=== PATIENT | female | born 1980 | race Caucasian/White ===

== ENCOUNTER 2016-09-30 10:27 | Emergency (ER) | payer OTHER ==
--- NOTE | 2016-09-30 13:03 | ED NURSING NOTES ---
Clinical Report - Nurses [facility] [address] [place] [address] 09/30/2016 10:29 Patient: RUSSELL SEGOVIA TRIAGE Triage time 10:35. Chief Complaint: INJURY TO LEFT KNEE. Alert. No acute distress. PARTH COMA SCORE: Parth Coma Scale: 15- eyes open spontaneously (4); best verbal response- oriented x 4 (5); best motor response- obeys commands (6). --10:43 Marlena Dennis R.N. 10:35 09/30/16. BP: 160/98 taken while sitting. HR: 92. RR: 20. O2 saturation: 100%. Temp: 98.6 F. Pain level now: 05/01. --10:43 Marlena Dennis R.N. [facility]-- 10:35 09/30/16. BP: 180/98 taken while sitting. HR: 92. RR: 20. O2 saturation: 100%. Temp: 98.6 F. Pain level now: 05/01. --10:43 Marlena Dennis R.N. --END STRIKE>> Correction. --13:39 Marlena eDnnis R.N. Weight: 74.8 kg stated. Height/Length: 63 inches. BMI: 29.2. --10:36 Marlena Dennis R.N. Medications Vitamins. --10:40 Marlena Dennis R.N. Allergies No Known Drug Allergy. --10:39 Marlena Dennis R.N. Medication/allergy information source: the patient. --10:43 Marlena Dennis R.N. History Arrived by private vehicle. Historian: patient. Primary physician (armando). ( drove self). This occurred yesterday. Occurred at home. Mechanism of injury: fell and landed on a hard surface (in the shower). She has had new onset of numbness, tingling, No new tingling and moderate trouble walking. The patient has been limping when trying to walk. Treatment URBAN DESIGN CONSULTANT: Took ibuprofen. PAST MEDICAL HX: Tetanus status: up-to-date. Last normal menstrual period was 3 weeks ago. SOCIAL HX: Never smoker. Occasional alcohol use. No drug use. FALL RISK ASSESSMENT: Fall risk assessment completed. No fall risk identified. NUTRITIONAL RISK ASSESSMENT: The nutritional risk assessment revealed no deficiencies. FUNCTIONAL ASSESSMENT: Functional assessment: no impairments noted. LEARNING NEEDS ASSESSMENT: The learning needs assessment revealed no barriers. SKIN INTEGRITY ASSESSMENT: Skin integrity risk assessment completed. No skin integrity risk identified. --10:43 Marlena Dennis R.N. PROBLEMS: Ovarian Cyst. --10:41 Marlena Dennis R.N. ADDITIONAL SURGERIES: Adenoidectomy. Appendectomy. Dental Surgery. Hernia Repair. Knee Surgery. Oophorectomy. Sinus Surgery. Tonsillectomy. --10:41 Marlena Dennis R.N. Breast reduction . --10:41 Marlena Dennis R.N. Interventions ID band on patient. To room. --10:43 Marlena Dennis R.N. PHYSICAL ASSESSMENT Ambulatory to room. Patient gowned. GENERAL / NEURO / PSYCH: Appears in pain and anxious. EXTREMITIES: Limited ROM present. Pain with weight bearing. Left knee: tenderness and swelling. SKIN: Skin intact. Skin is warm and dry. --10:43 Marlena Dennis R.N. NURSING PROGRESS NOTES Cold pack applied. Extremity elevated. Patient gowned. Two patient identifiers checked. Call light placed in reach. Side rails up x 1. Bed placed in lowest position. Brakes of bed on. Patient ready for evaluation. --10:43 Marlena Dennis R.N. DISPOSITION / DISCHARGE 13:30. Condition at departure: improved. No learning barriers present. Discharge instructions provided and reviewed with the patient. Reviewed medication(s) side effects, precautions, dosing and course information. Prescription(s) given to the patient. Reviewed referral to an orthopedic surgeon. Patient verbalized understanding. Written instructions provided in Israeli. The patient was discharged home. She left the Emergency Department ambulatory on crutches and via private vehicle. Patient driving. Medication list reviewed and validated. --13:40 Marlena Dennis R.N. 13:39 09/30/16. BP: 129/78. HR: 70. RR: 18. O2 saturation: 99% on room air. Temp: deferred. 12:18 09/30/16. BP: 118/74. HR: 78. RR: 20. O2 saturation: 97% on room air. Temp: deferred. 10:35 09/30/16. BP: 160/98 taken while sitting. HR: 92. RR: 20. O2 saturation: 100%. Temp: 98.6 F. Pain level now: 05/01. --13:40 Marlena Dennis R.N. Locked/Released at 09/30/2016 13:41 by Marlena Dennis R.N.
--- NOTE | 2016-09-30 13:03 | ED CLINICAL REPORT ---
Clinical Report - Physicians/Mid Levels [facility] [address] [place] [address] 09/30/2016 10:29 Patient: RUSSELL SEGOVIA Time Seen: 11:28 Sep 30 2016. Arrived- By private vehicle. Historian- patient. CPT: ER phys charges level 3 plus (#[id number]). HISTORY OF PRESENT ILLNESS Chief Complaint: Injury to left knee. The injury happened yesterday. Fell. Occurred at home. ( This occurred yesterday. Occurred at home. Mechanism of injury: fell and landed on a hard surface (in the shower). She has had new onset of numbness, tingling, No new tingling and moderate trouble walking. The patient has been limping when trying to walk.). Patient is experiencing moderate pain. No other injury. REVIEW OF SYSTEMS The patient complains of pain on weight bearing. She has had swelling. No tingling, weakness, numbness, suspected foreign body or skin laceration. All systems otherwise negative, except as recorded above. PAST HISTORY ( Adenoidectomy. Appendectomy. Dental Surgery. Hernia Repair. Knee Surgery. Oophorectomy. Sinus Surgery. Tonsillectomy. Breast reduction . Ovarian Cyst.). Medications: Vitamins. Allergies: No Known Drug Allergy. SOCIAL HISTORY Never smoker. Occasional alcohol use. No drug use. ADDITIONAL NOTES The nursing notes have been reviewed. PHYSICAL EXAM Vital Signs: 09/30/2016 10:35 BP: 160/98. HR: 92. RR: 20. O2 saturation: 100%. Temp: 98.6 F. Pain level now: 1010. Appearance: Alert. Appears to be in pain. Patient in mild distress. Head: Head atraumatic. Neck: Normal inspection. C-spine non-tender. CVS: Normal heart rate and rhythm. Respiratory: No respiratory distress. Back: No tenderness. Skin: Skin intact. Normal skin color. Extremities: Left knee: moderate tenderness and mild swelling located in the medial joint line. Neurovascular intact distally. (tender to stress of the medial collateral.). No ligamentous laxity present. No joint effusion. No laceration, abrasion, ecchymosis or deformity. No limitation in ROM. Extremities otherwise negative. Gait: Limping gait. Neuro, Vascular and Tendons: Vascular status intact. Sensation intact. Motor intact. Neuro: Oriented X 3. No motor deficit. No sensory deficit. Reflexes normal. LABS, X-RAYS, AND EKG Lt Knee X-ray: (No fx, small effusion.). Views: AP, lateral and oblique. Technique: good. The X-rays were independently viewed by me and interpreted contemporaneously by me. Prior films were not available for comparison. PROGRESS AND PROCEDURES Splint Application: Knee immobilizer applied to left lower extremity. Splint applied by tech with direct supervision by the ED physician. Reassessed extremity following splint application. Neurovascular intact. Follow-up recommended within 7 days. Fitted for crutches by the tech. Patient/family counseled. Disposition: Discharged. Condition: stable. CLINICAL IMPRESSION Sprain of the medial collateral ligament of the left knee. INSTRUCTIONS Apply ice for 15-20 minutes three times a day for one days. Use crutches until better. Wear knee immobilizer until better. You may walk and bear weight as tolerated. Return to work in three days (use crutches and knee immobilzer until better.). Do not work for two days until better. Warnings: GENERAL WARNINGS: Return or contact your physician immediately if your condition worsens or changes unexpectedly, if not improving as expected, or if other problems arise. Your Current Medications: CONTINUE TAKING THE FOLLOWING MEDICATIONS: Vitamins*. Prescription Medications: Hydrocodone/APAP 5mg/325mg: take 1 to 2 orally every 6 hours as needed for pain. Dispense fifteen (15). No refills. Ibuprofen 600mg tablets: take 1 tablet orally every 8 hours as needed for pain. Dispense thirty (30). No refills. Follow-up: Follow up with your doctor in one week. Call for an appointment. Understanding of the discharge instructions verbalized by patient. (Electronically signed by Jaswinder Jacobsen MD 10/02/2016 11:34) Addenda for RUSSELL SEGOVIA VisitID: [id number] Date: 09/30/2016 09/30/2016 14:02 Immobolizer applied to the left knee by the diazo technician. Distal pulses intatct, sensation intact and motor function within normal limits. Patient fit with new crutches. Crutch training performed by tech; the patient demonstrated proper use. (Electronically signed by Jayleen Montoya - 09/30/2016 14:02)
--- NOTE | 2016-09-30 13:03 | ED ORDER SUMMARY ---
..... Patient: RUSSELL SEGOVIA OrderSheet [facility] VisitID: [id number] [place] [address] 35y, F Registration Date/Time: 09/30/2016 ORDER SHEET Weight: 74.8 kg (stated) Allergies: No Known Drug Allergy GENERAL ORDERS: Knee 4V Left Urgent (11:27 09/30/2016 Jennifer GARBER) (Ack 11:46 LTapper) (12:07 LTapper) Knee Immobilizer (13:09/30/2016 Jennifer GARBER) (13:34 Regine R.N.) Crutches (13:09/30/2016 Jennifer GARBER) (13:35 Regine R.N.) MEDICATION ORDERS: IV FLUIDS: ORDER SHEET NOTES: [Electronically signed by Marlena Dennis R.N. (13:41 09/30/2016)] [Electronically signed by Jaswinder Jacobsen MD (11:34 10/02/2016)] [Electronically locked/signed by Marlena Dennis R.N. (13:41 09/30/2016)]
--- NOTE | 2016-09-30 13:03 | ED ORDER SUMMARY ---
..... Patient: RUSSELL SEGOVIA OrderSheet [facility] VisitID: [id number] [place] [address] 35y, F Registration Date/Time: 09/30/2016 ORDER SHEET Weight: 74.8 kg (stated) Allergies: No Known Drug Allergy GENERAL ORDERS: Knee 4V Left Urgent (11:27 09/30/2016 Jennifer GARBER) (Ack 11:46 LTapper) (12:07 LTapper) Knee Immobilizer (13:09/30/2016 Jennifer GARBER) (13:34 Regine R.N.) Crutches (13:09/30/2016 Jennifer GARBER) (13:35 Regine R.N.) MEDICATION ORDERS: IV FLUIDS: ORDER SHEET NOTES: [Electronically signed by Marlena Dennis R.N. (13:41 09/30/2016)] [Electronically signed by Jaswinder Jacobsen MD (11:34 10/02/2016)] [Electronically locked/signed by Marlena Dennis R.N. (13:41 09/30/2016)]
--- NOTE | 2016-09-30 13:03 | ED CLINICAL REPORT ---
Clinical Report - Physicians/Mid Levels [facility] [address] [place] [address] 09/30/2016 10:29 Patient: RUSSELL SEGOVIA Time Seen: 11:28 Sep 30 2016. Arrived- By private vehicle. Historian- patient. CPT: ER phys charges level 3 plus (#[id number]). HISTORY OF PRESENT ILLNESS Chief Complaint: Injury to left knee. The injury happened yesterday. Fell. Occurred at home. ( This occurred yesterday. Occurred at home. Mechanism of injury: fell and landed on a hard surface (in the shower). She has had new onset of numbness, tingling, No new tingling and moderate trouble walking. The patient has been limping when trying to walk.). Patient is experiencing moderate pain. No other injury. REVIEW OF SYSTEMS The patient complains of pain on weight bearing. She has had swelling. No tingling, weakness, numbness, suspected foreign body or skin laceration. All systems otherwise negative, except as recorded above. PAST HISTORY ( Adenoidectomy. Appendectomy. Dental Surgery. Hernia Repair. Knee Surgery. Oophorectomy. Sinus Surgery. Tonsillectomy. Breast reduction . Ovarian Cyst.). Medications: Vitamins. Allergies: No Known Drug Allergy. SOCIAL HISTORY Never smoker. Occasional alcohol use. No drug use. ADDITIONAL NOTES The nursing notes have been reviewed. PHYSICAL EXAM Vital Signs: 09/30/2016 10:35 BP: 160/98. HR: 92. RR: 20. O2 saturation: 100%. Temp: 98.6 F. Pain level now: 1010. Appearance: Alert. Appears to be in pain. Patient in mild distress. Head: Head atraumatic. Neck: Normal inspection. C-spine non-tender. CVS: Normal heart rate and rhythm. Respiratory: No respiratory distress. Back: No tenderness. Skin: Skin intact. Normal skin color. Extremities: Left knee: moderate tenderness and mild swelling located in the medial joint line. Neurovascular intact distally. (tender to stress of the medial collateral.). No ligamentous laxity present. No joint effusion. No laceration, abrasion, ecchymosis or deformity. No limitation in ROM. Extremities otherwise negative. Gait: Limping gait. Neuro, Vascular and Tendons: Vascular status intact. Sensation intact. Motor intact. Neuro: Oriented X 3. No motor deficit. No sensory deficit. Reflexes normal. LABS, X-RAYS, AND EKG Lt Knee X-ray: (No fx, small effusion.). Views: AP, lateral and oblique. Technique: good. The X-rays were independently viewed by me and interpreted contemporaneously by me. Prior films were not available for comparison. PROGRESS AND PROCEDURES Splint Application: Knee immobilizer applied to left lower extremity. Splint applied by tech with direct supervision by the ED physician. Reassessed extremity following splint application. Neurovascular intact. Follow-up recommended within 7 days. Fitted for crutches by the tech. Patient/family counseled. Disposition: Discharged. Condition: stable. CLINICAL IMPRESSION Sprain of the medial collateral ligament of the left knee. INSTRUCTIONS Apply ice for 15-20 minutes three times a day for one days. Use crutches until better. Wear knee immobilizer until better. You may walk and bear weight as tolerated. Return to work in three days (use crutches and knee immobilzer until better.). Do not work for two days until better. Warnings: GENERAL WARNINGS: Return or contact your physician immediately if your condition worsens or changes unexpectedly, if not improving as expected, or if other problems arise. Your Current Medications: CONTINUE TAKING THE FOLLOWING MEDICATIONS: Vitamins*. Prescription Medications: Hydrocodone/APAP 5mg/325mg: take 1 to 2 orally every 6 hours as needed for pain. Dispense fifteen (15). No refills. Ibuprofen 600mg tablets: take 1 tablet orally every 8 hours as needed for pain. Dispense thirty (30). No refills. Follow-up: Follow up with your doctor in one week. Call for an appointment. Understanding of the discharge instructions verbalized by patient. (Electronically signed by Jaswinder Jacobsen MD 10/02/2016 11:34) Addenda for RUSSELL SEGOVIA VisitID: [id number] Date: 09/30/2016 09/30/2016 14:02 Immobolizer applied to the left knee by the serology technician. Distal pulses intatct, sensation intact and motor function within normal limits. Patient fit with new crutches. Crutch training performed by tech; the patient demonstrated proper use. (Electronically signed by Jayleen Montoya - 09/30/2016 14:02)
--- NOTE | 2016-09-30 13:03 | ED NURSING NOTES ---
Clinical Report - Nurses [facility] [address] [place] [address] 09/30/2016 10:29 Patient: RUSSELL SEGOVIA TRIAGE Triage time 10:35. Chief Complaint: INJURY TO LEFT KNEE. Alert. No acute distress. PARTH COMA SCORE: Parth Coma Scale: 15- eyes open spontaneously (4); best verbal response- oriented x 4 (5); best motor response- obeys commands (6). --10:43 Marlena Dennis R.N. 10:35 09/30/16. BP: 160/98 taken while sitting. HR: 92. RR: 20. O2 saturation: 100%. Temp: 98.6 F. Pain level now: 05/01. --10:43 Marlena Dennis R.N. [facility]-- 10:35 09/30/16. BP: 180/98 taken while sitting. HR: 92. RR: 20. O2 saturation: 100%. Temp: 98.6 F. Pain level now: 05/01. --10:43 Marlena Dennis R.N. --END STRIKE>> Correction. --13:39 Marlena Dennis R.N. Weight: 74.8 kg stated. Height/Length: 63 inches. BMI: 29.2. --10:36 Marlena Dennis R.N. Medications Vitamins. --10:40 aMrlena Dennis R.N. Allergies No Known Drug Allergy. --10:39 Marlena Dennis R.N. Medication/allergy information source: the patient. --10:43 Marlena Dennis R.N. History Arrived by private vehicle. Historian: patient. Primary physician (armando). ( drove self). This occurred yesterday. Occurred at home. Mechanism of injury: fell and landed on a hard surface (in the shower). She has had new onset of numbness, tingling, No new tingling and moderate trouble walking. The patient has been limping when trying to walk. Treatment PONY ROUGHER: Took ibuprofen. PAST MEDICAL HX: Tetanus status: up-to-date. Last normal menstrual period was 3 weeks ago. SOCIAL HX: Never smoker. Occasional alcohol use. No drug use. FALL RISK ASSESSMENT: Fall risk assessment completed. No fall risk identified. NUTRITIONAL RISK ASSESSMENT: The nutritional risk assessment revealed no deficiencies. FUNCTIONAL ASSESSMENT: Functional assessment: no impairments noted. LEARNING NEEDS ASSESSMENT: The learning needs assessment revealed no barriers. SKIN INTEGRITY ASSESSMENT: Skin integrity risk assessment completed. No skin integrity risk identified. --10:43 Marlena Dennis R.N. PROBLEMS: Ovarian Cyst. --10:41 Marlena Dennis R.N. ADDITIONAL SURGERIES: Adenoidectomy. Appendectomy. Dental Surgery. Hernia Repair. Knee Surgery. Oophorectomy. Sinus Surgery. Tonsillectomy. --10:41 Marlena Dennis R.N. Breast reduction . --10:41 Marlena Dennis R.N. Interventions ID band on patient. To room. --10:43 Marlena Dennis R.N. PHYSICAL ASSESSMENT Ambulatory to room. Patient gowned. GENERAL / NEURO / PSYCH: Appears in pain and anxious. EXTREMITIES: Limited ROM present. Pain with weight bearing. Left knee: tenderness and swelling. SKIN: Skin intact. Skin is warm and dry. --10:43 Marlena Dennis R.N. NURSING PROGRESS NOTES Cold pack applied. Extremity elevated. Patient gowned. Two patient identifiers checked. Call light placed in reach. Side rails up x 1. Bed placed in lowest position. Brakes of bed on. Patient ready for evaluation. --10:43 Marlena eDnnis R.N. DISPOSITION / DISCHARGE 13:30. Condition at departure: improved. No learning barriers present. Discharge instructions provided and reviewed with the patient. Reviewed medication(s) side effects, precautions, dosing and course information. Prescription(s) given to the patient. Reviewed referral to an orthopedic surgeon. Patient verbalized understanding. Written instructions provided in Hungarian. The patient was discharged home. She left the Emergency Department ambulatory on crutches and via private vehicle. Patient driving. Medication list reviewed and validated. --13:40 Marlena Dennis R.N. 13:39 09/30/16. BP: 129/78. HR: 70. RR: 18. O2 saturation: 99% on room air. Temp: deferred. 12:18 09/30/16. BP: 118/74. HR: 78. RR: 20. O2 saturation: 97% on room air. Temp: deferred. 10:35 09/30/16. BP: 160/98 taken while sitting. HR: 92. RR: 20. O2 saturation: 100%. Temp: 98.6 F. Pain level now: 05/01. --13:40 Marlena Dennis R.N. Locked/Released at 09/30/2016 13:41 by Marlena Dennis R.N.
--- NOTE | 2016-09-30 13:44 | DIAGNOSTIC IMAGING REPORT ---
PROCEDURE: XR KNEE 4 VIEWS - LEFT INDICATION: TRAUMA/INJURY TECHNIQUE: Four views. COMPARISON: None. FINDINGS: Normal bones and joint spaces. Small effusion. IMPRESSION: 1. Small effusion.
--- NOTE | 2016-09-30 13:44 | DIAGNOSTIC IMAGING REPORT ---
PROCEDURE: XR KNEE 4 VIEWS - LEFT INDICATION: TRAUMA/INJURY TECHNIQUE: Four views. COMPARISON: None. FINDINGS: Normal bones and joint spaces. Small effusion. IMPRESSION: 1. Small effusion.
--- NOTE | 2016-10-02 11:34 | ED MED RECONCILIATION SUMMARY ---
Patient: RUSSELL SEGOVIA Medication Reconciliation Report [facility] VisitID: [id number] [place] [address] 35y, [place] Registration Date/Time: 09/30/2016 Weight: 74.8 kg Height/Length: 63 in. BMI: 29.2 ALLERGIES: No Known Drug Allergy The patient's Home Medications are listed below: CONTINUE TAKING THE FOLLOWING MEDICATIONS: Vitamins The source(s) of the original Home Medication information: patient The following Medications were given to the patient in the Emergency Department: None. The following Medications were prescribed to the patient: Hydrocodone/APAP 5mg/325mg: take 1 to 2 orally every 6 hours as needed for pain. Dispense fifteen (15). No refills. -- Jaswinder Jacobsen MD Ibuprofen 600mg tablets: take 1 tablet orally every 8 hours as needed for pain. Dispense thirty (30). No refills. -- Jaswinder Jacobsen MD
--- NOTE | 2016-10-02 11:34 | ED MAR SUMMARY ---
..... Medication Administration Record [facility] [address] [place], [place] [id number] Patient: RUSSELL SEGOVIA Visit ID: [id number] 35y, F Weight: 74.8 kg Height/Length: 63 in BMI: 29.2 ALLERGIES: No Known Drug Allergy
--- NOTE | 2016-10-02 11:34 | ED MAR SUMMARY ---
..... Medication Administration Record [facility] [address] [place], [place] [id number] Patient: RUSSELL SEGOVIA Visit ID: [id number] 35y, F Weight: 74.8 kg Height/Length: 63 in BMI: 29.2 ALLERGIES: No Known Drug Allergy
--- NOTE | 2016-10-02 11:34 | ED MED RECONCILIATION SUMMARY ---
Patient: RUSSELL SEGOVIA Medication Reconciliation Report VisitID: [id number] [place] [address] 35y, F Registration Date/Time: 09/30/2016 Weight: 74.8 kg Height/Length: 63 in. BMI: 29.2 ALLERGIES: No Known Drug Allergy The patient's Home Medications are listed below: CONTINUE TAKING THE FOLLOWING MEDICATIONS: Vitamins The source(s) of the original Home Medication information: patient The following Medications were given to the patient in the Emergency Department: None. The following Medications were prescribed to the patient: Hydrocodone/APAP 5mg/325mg: take 1 to 2 orally every 6 hours as needed for pain. Dispense fifteen (15). No refills. -- Jaswinder Jacobsen MD Ibuprofen 600mg tablets: take 1 tablet orally every 8 hours as needed for pain. Dispense thirty (30). No refills. -- Jaswinder Jacobsen MD
--- NOTE | 2016-10-02 11:34 | ED DISCHARGE INSTRUCTIONS ---
Patient: RUSSELL SEGOVIA General Instructions [facility] VisitID: [id number] [place] [address] 35y, F Registration Date/Time: 09/30/2016 Sprain of the medial collateral ligament of the left knee. INSTRUCTIONS Apply ice for 15-20 minutes three times a day for one days. Use crutches until better. Wear knee immobilizer until better. You may walk and bear weight as tolerated. Return to work in three days (use crutches and knee immobilzer until better.). Do not work for two days until better. Warnings: GENERAL WARNINGS: Return or contact your physician immediately if your condition worsens or changes unexpectedly, if not improving as expected, or if other problems arise. Your Current Medications: CONTINUE TAKING THE FOLLOWING MEDICATIONS: Vitamins*. Prescription Medications: Hydrocodone/APAP 5mg/325mg: take 1 to 2 orally every 6 hours as needed for pain. Dispense fifteen (15). No refills. Ibuprofen 600mg tablets: take 1 tablet orally every 8 hours as needed for pain. Dispense thirty (30). No refills. Follow-up: Follow up with your doctor in one week. Call for an appointment. Understanding of the discharge instructions verbalized by patient. ADDITIONAL INFORMATION Knee Sprain, Collateral Ligaments The knee is a hinge joint supported by four strong ligaments. The two ligaments inside the knee (cruciate ligaments) protect this joint from excess forward and backward movement. The ligaments on the outside of the joint (collateral ligaments) prevent [id number] motion. The medial collateral ligament (MCL) is located on the inner side of the joint; and the lateral collateral ligament (LCL) is on the outer side of the joint. You have sprained one or both collateral ligaments. A sprain is a tearing of a ligament. The tear may be partial or complete. Diagnosis is made by physical exam. In the case of an acute injury, the knee may be too swollen or painful to examine fully. A more accurate exam can be performed after the initial swelling goes down. Symptoms of a knee sprain include immediate knee swelling, pain, and difficulty walking.Initial treatment includes resting the joint, splinting to reduce movement of the joint, use of ice to reduce swelling and pain. Non-steroidal anti-inflammatory drugs (NSAIDs), such as ibuprofen, may be prescribed. Most sprains will heal in one to four weeks.A severe injury can take three to four months to heal and requires rehabilitation exercises. Surgery is usually not required for sprains involving only the collateral ligaments. Home care The following guidelines will help you care for your injury at home: Stay off the injured leg as much as possible until you can walk on it without pain. If you have a lot of pain while walking, crutches, or a walker may be prescribed. (These can be rented or purchased at many pharmacies and surgical or orthopedic supply stores.) Follow your doctor's advice regarding when to begin bearing weight on that leg. If you were given a txub-crf-uzou closure knee brace, you can remove this to bathe, but leave it in place when walking, sitting, or lying down (unless told otherwise). Apply an ice pack (ice cubes in a plastic bag, wrapped in a towel) over the injured area for 20 minutes every 12 hours the first day. If a gwtl-bri-wvdo closure knee brace was applied, you can open this to apply the ice pack directly to the knee. Continue with ice packs 34 times a day for the next two days, then as needed for the relief of pain and swelling. You may use acetaminophen or ibuprofen to control pain, unless another pain medicine was prescribed. If you have chronic liver or kidney disease or ever had a stomach ulcer or GI bleeding, talk with your doctor before using these medicines. Follow-up care Follow up with the referral doctor, or as advised by our staff. Any X-rays you had today dont show any broken bones, breaks, or fractures. Sometimes fractures dont show up on the first X-ray. Bruises and sprains can sometimes hurt as much as a fracture. These injuries can take time to heal completely. If your symptoms dont improve or they get worse, talk with your doctor. You may need a repeat X-ray. When to seek medical care Get prompt medical attention if any of the following occur: Pain or swelling worsens Shortness of breath or chest pain Swelling or redness or pain of the calf or thigh Crutch Walking Crutch Adjustment Make sure the crutches you use are adjusted to fit you. When you stand, there should be room to fit 2-3 fingers between the top of the crutch and your armpit. Your elbow should be slightly bent when holding the hand housing management officer. Crutch Walking: Place the crutches forward 12" in front of and 6" to the side of your feet. Lean your weight forward as you push down on the handgrips. Your weight should be on your hands and yourstrong leg, not your armpits . Let your body swing through, landing on the strong leg. Advance the crutches forward again. The crutch and the injured leg should move together. Going Up Steps: ("Up with the good") With both crutches on the same step as your feet, push down on the handgrips. Balancing with very light pressure on the weak leg, let your hands support your weight as you raise your strong leg onto the next higher step. Transfer all your weight to your strong leg (still bent) as you move the crutches up to the next step alongside the strong leg. With your weight evenly balanced on the two crutches and your strong leg, straighten your strong knee as you raise the weak leg up to the next step. Going Down Steps: ("Down with the bad") With both crutches on the same step as your feet, push down on the handgrips. With your weight evenly balanced on the two crutches and your strong leg, bend your strong knee as you lower the weak leg down to the next step. Let your strong leg support you (still bent) as you move the crutches down alongside the weak leg. Transfer your weight to your hands, balancing with very light pressure on the weak leg as you lower your strong leg alongside your weak leg. Knee Immobilizer A KNEE IMMOBILIZER is used to provide support and limit movement of the knee. This will make you more comfortable as your injury heals. Home Use: 1) Unless told otherwise, the knee brace should be worn whenever you are out of bed. You may wear it in bed while asleep for the first few nights or until the pain starts to go away. Otherwise, remove the brace at night to avoid muscle stiffness from lack of joint movement. 2) You can open the velcro brace to dress, bathe and apply ice packs as directed. Get Prompt Medical Attention if any of the following occur: -- Worsening pain in the knee -- Weakness or numbness or tingling in the foot -- Increased swelling, redness or warmth of the knee joint You have been given the following additional information: Knee Sprain: Collateral Ligaments Crutch Walking Knee Immobilizer You may walk and bear weight as tolerated. Return to work in three days (use crutches and knee immobilzer until better.). Do not work for two days until better. (Electronically signed by Jaswinder Jacobsen MD 10/02/2016 11:34)
== END 2016-09-30 13:30 | disposition home or self-care (01) ==
LOC: ED SRH 10:27
DX: S83.412A Sprain of medial collateral ligament of left knee, initial encounter (principal); W18.2XXA Fall in (into) shower or empty bathtub, initial encounter; Y93.E1 Activity, personal bathing and showering; Y92.002 Bathroom of unspecified non-institutional (private) residence as the place of occurrence of the external cause

== ENCOUNTER 2016-10-02 12:42 | Emergency (ER) | payer OTHER ==
--- NOTE | 2016-10-02 13:40 | ED NURSING NOTES ---
Clinical Report - Nurses [address], [place] [address] 10/02/2016 12:42 Patient: RUSSELL SEGOVIA TRIAGE Triage time 13:01. Acuity: LEVEL 4. Chief Complaint: INJURY TO LEFT KNEE. Alert. No acute distress. DAR COMA SCORE: [place] Coma Scale: 15- eyes open spontaneously (4); best verbal response- oriented x 4 (5); best motor response- obeys commands (6). --13:09 Ani Conway R.N. 13:00 10/02/16. BP: 159/92. HR: 87. RR: 18. O2 saturation: 100% on room air. Temp: 97.6 F (oral). Pain level now: 05/01. --13:09 Ani Conway R.N. Weight: 74.8 kg stated. Height/Length: 62 inches Per Patient. BMI: 30.2. --13:05 Ani Conway R.N. Medications Vitamins. --13:03 Ani Conway R.N. Ibuprofen Oral. Vicodin Oral (taking 2 and not helping). --13:03 Ani Conway R.N. Medication/allergy information source: the patient. --13:09 Ani Conway R.N. Allergies No Known Drug Allergy. --13:03 Ani Conway R.N. History Arrived by private vehicle. Historian: patient. Accompanied by family. Primary physician ([facility]). This occurred (5 days). Mechanism of injury: fell (slipped in shower ). ( seen here Sunday, has apt Sunday, pain bad, can't sleep). 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 (Vicodin @1200). PAST MEDICAL HX: Last normal menstrual period- Aug 2016. SOCIAL HX: Smoker- current status unknown (no). Occasional alcohol use. No drug use. FALL RISK ASSESSMENT: Fall risk assessment completed. No fall risk identified. FUNCTIONAL ASSESSMENT: Functional assessment: no impairments noted. LEARNING NEEDS ASSESSMENT: The learning needs assessment revealed no barriers. --13:09 Ani Conway R.N. PROBLEMS: Sprain. Ovarian Cyst. LNMP - Last Normal Menstrual Period. --13:04 Ani Conway R.N. ADDITIONAL SURGERIES: Adenoidectomy. Appendectomy. Breast reduction . Dental Surgery. Hernia Repair. Knee Surgery. Oophorectomy. Sinus Surgery. Tonsillectomy. --13:04 Ani Conway R.N. Assessment GENERAL / NEURO / PSYCH: Alert. Oriented X 4. Appears in no acute distress. Patient appears calm and cooperative. RESPIRATORY: Respirations not labored. SKIN: Skin is warm and dry. --13:09 Ani Conway R.N. Interventions ID band on patient. To treatment room. --13:09 Ani Conway R.N. PHYSICAL ASSESSMENT 13:12 10/02/16. Ambulatory to room. GENERAL / NEURO / PSYCH: Oriented X 4. Alert. Appears in no acute distress. EXTREMITIES: Pain with weight bearing. ( wearing knee imobolizer from previous visit). SKIN: Skin is warm and dry. --13:12 Ani Conway R.N. NURSING PROGRESS NOTES 13:12 10/02/16. Call light placed in reach. Side rails up x 1. Bed placed in lowest position. Brakes of bed on. --13:12 Ani Conway R.N. 13:13 states she took her last vicodin. --13:13 Ani Conway R.N. 13:52 10/02/2016 Toradol (Ketorolac Tromethamine) IM 60 mg given. Given in the right ventral gluteus. Allergies verified and confirmed 5 rights. --13:52 Ani Conway R.N. 13:55. The patient is calm and resting quietly. Overall patient status is the same- she states feels the same. GENERAL / NEURO / PSYCH: Alert. Oriented X 4. RESPIRATORY: No respiratory distress. SKIN: Skin is warm and dry. --14:59 Ani Conway R.N. DISPOSITION / DISCHARGE Departure time: 1355. Condition at departure: stable. Fall risk assessment completed. Risk factors identified include patient history of fall and impairment of mobility. No learning barriers present. Discharge instructions provided and reviewed with the patient. Reviewed medication(s). Prescription(s) given to the patient. Patient verbalized understanding. Written instructions provided in Occitan. The patient was discharged home and accompanied by spouse. She left the Emergency Department ambulatory and via private vehicle. --14:58 Ani Conway R.N. 13:55 10/02/16. BP: 155/89. HR: 88. RR: 18. O2 saturation: 100%. Pain level now: 01/29. --14:58 Ani Conway R.N. Locked/Released at 10/02/2016 14:59 by Ani Conway R.N.
--- NOTE | 2016-10-02 13:40 | ED ORDER SUMMARY ---
..... Patient: RUSSELL SEGOVIA OrderSheet [facility] VisitID: [id number] [address] [place] [address] 35y, F Registration Date/Time: 10/02/2016 ORDER SHEET Weight: 74.8 kg (stated) Allergies: No Known Drug Allergy GENERAL ORDERS: MEDICATION ORDERS: Toradol IM 60 mg (NOW) (13:37 10/02/2016 Tyshawn A.R.N.P.) (Ack 13:41 Jose Guadalupe R.N.) (13:52 Jose Guadalupe R.N.) IV FLUIDS: ORDER SHEET NOTES: [Electronically signed by Luciana HuR.N.PMartha (14:22 10/02/2016)] [Electronically signed by Ani Conway R.N. (14:59 10/02/2016)] [Electronically locked/signed by Ani Conway R.N. (14:59 10/02/2016)]
--- NOTE | 2016-10-02 13:40 | ED ORDER SUMMARY ---
..... Patient: RUSSELL SEGOVIA OrderSheet [facility] VisitID: [id number] [address] [place] [address] 35y, F Registration Date/Time: 10/02/2016 ORDER SHEET Weight: 74.8 kg (stated) Allergies: No Known Drug Allergy GENERAL ORDERS: MEDICATION ORDERS: Toradol IM 60 mg (NOW) (13:37 10/02/2016 Tyshawn A.R.N.P.) (Ack 13:41 Jose Guadalupe R.N.) (13:52 Jose Guadalupe R.N.) IV FLUIDS: ORDER SHEET NOTES: [Electronically signed by Luciana HuR.N.PMartha (14:22 10/02/2016)] [Electronically signed by Ani Conway R.N. (14:59 10/02/2016)] [Electronically locked/signed by Ani Conway R.N. (14:59 10/02/2016)]
--- NOTE | 2016-10-02 13:40 | ED NURSING NOTES ---
Clinical Report - Nurses [address], [place] [address] 10/02/2016 12:42 Patient: RUSSELL SEGOVIA TRIAGE Triage time 13:01. Acuity: LEVEL 4. Chief Complaint: INJURY TO LEFT KNEE. Alert. No acute distress. DAR COMA SCORE: [place] Coma Scale: 15- eyes open spontaneously (4); best verbal response- oriented x 4 (5); best motor response- obeys commands (6). --13:09 Ani Conway R.N. 13:00 10/02/16. BP: 159/92. HR: 87. RR: 18. O2 saturation: 100% on room air. Temp: 97.6 F (oral). Pain level now: 05/01. --13:09 Ani Conway R.N. Weight: 74.8 kg stated. Height/Length: 62 inches Per Patient. BMI: 30.2. --13:05 Ani Conway R.N. Medications Vitamins. --13:03 Ani Conway R.N. Ibuprofen Oral. Vicodin Oral (taking 2 and not helping). --13:03 Ani Conway R.N. Medication/allergy information source: the patient. --13:09 Ani Conway R.N. Allergies No Known Drug Allergy. --13:03 Ani Conway R.N. History Arrived by private vehicle. Historian: patient. Accompanied by family. Primary physician ([facility]). This occurred (5 days). Mechanism of injury: fell (slipped in shower ). ( seen here Sunday, has apt Sunday, pain bad, can't sleep). 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 (Vicodin @1200). PAST MEDICAL HX: Last normal menstrual period- Aug 2016. SOCIAL HX: Smoker- current status unknown (no). Occasional alcohol use. No drug use. FALL RISK ASSESSMENT: Fall risk assessment completed. No fall risk identified. FUNCTIONAL ASSESSMENT: Functional assessment: no impairments noted. LEARNING NEEDS ASSESSMENT: The learning needs assessment revealed no barriers. --13:09 Ani Conway R.N. PROBLEMS: Sprain. Ovarian Cyst. LNMP - Last Normal Menstrual Period. --13:04 Ani Conway R.N. ADDITIONAL SURGERIES: Adenoidectomy. Appendectomy. Breast reduction . Dental Surgery. Hernia Repair. Knee Surgery. Oophorectomy. Sinus Surgery. Tonsillectomy. --13:04 Ani Conway R.N. Assessment GENERAL / NEURO / PSYCH: Alert. Oriented X 4. Appears in no acute distress. Patient appears calm and cooperative. RESPIRATORY: Respirations not labored. SKIN: Skin is warm and dry. --13:09 Ani Conway R.N. Interventions ID band on patient. To treatment room. --13:09 Ani Conway R.N. PHYSICAL ASSESSMENT 13:12 10/02/16. Ambulatory to room. GENERAL / NEURO / PSYCH: Oriented X 4. Alert. Appears in no acute distress. EXTREMITIES: Pain with weight bearing. ( wearing knee imobolizer from previous visit). SKIN: Skin is warm and dry. --13:12 Ani Conway R.N. NURSING PROGRESS NOTES 13:12 10/02/16. Call light placed in reach. Side rails up x 1. Bed placed in lowest position. Brakes of bed on. --13:12 Ani Conway R.N. 13:13 states she took her last vicodin. --13:13 Ani Conway R.N. 13:52 10/02/2016 Toradol (Ketorolac Tromethamine) IM 60 mg given. Given in the right ventral gluteus. Allergies verified and confirmed 5 rights. --13:52 Ani Conway R.N. 13:55. The patient is calm and resting quietly. Overall patient status is the same- she states feels the same. GENERAL / NEURO / PSYCH: Alert. Oriented X 4. RESPIRATORY: No respiratory distress. SKIN: Skin is warm and dry. --14:59 Ani Conway R.N. DISPOSITION / DISCHARGE Departure time: 1355. Condition at departure: stable. Fall risk assessment completed. Risk factors identified include patient history of fall and impairment of mobility. No learning barriers present. Discharge instructions provided and reviewed with the patient. Reviewed medication(s). Prescription(s) given to the patient. Patient verbalized understanding. Written instructions provided in Malay. The patient was discharged home and accompanied by spouse. She left the Emergency Department ambulatory and via private vehicle. --14:58 Ani Conway R.N. 13:55 10/02/16. BP: 155/89. HR: 88. RR: 18. O2 saturation: 100%. Pain level now: 01/29. --14:58 Ani Conway R.N. Locked/Released at 10/02/2016 14:59 by Ani Conway R.N.
--- NOTE | 2016-10-02 13:40 | ED CLINICAL REPORT ---
Clinical Report - Physicians/Mid Levels [facility] [address] [place] [address] 10/02/2016 12:42 Patient: RUSSELL SEGOVIA Time Seen: 13:10; initial patient contact, initial documentation, patient care assumed. Arrived- By private vehicle. Historian- patient. HISTORY OF PRESENT ILLNESS Chief Complaint: LOWER EXTREMITY PAIN. Not relieved by anything- worsened by walking and not relieved by anything. Severity is described as being severe. The quality is noted to be "pain". No radiation. This started about 5 days ago and is still present but is improving. Symptoms located in the area of the left knee. The patient has not had redness. She has had swelling, (is better than before). No difficulty walking. No bladder dysfunction, bowel dysfunction, sensory loss or motor loss. ( denies any new injury/trauma). Patient notes an injury. Mechanism of injury- she fell from a standing position. (slipped in shower). Occurred at home. Similar symptoms previously: None. Recent medical care: The patient was seen recently at this facility in the emergency department. ( txed here 09/30, dx with knee ligament sprain injury, knee immobilizer placed, rx motrin and norco given, has f/u appt sunday, ran out of pain meds and is hurting). REVIEW OF SYSTEMS No chest pain or difficulty breathing. All systems otherwise negative, except as recorded above. PAST HISTORY See nurses notes. ( PROBLEMS: Sprain. Ovarian Cyst. LNMP - Last Normal Menstrual Period. --13:04 Ani Conway, R.N. ADDITIONAL SURGERIES: Adenoidectomy. Appendectomy. Breast reduction . Dental Surgery. Hernia Repair. Knee Surgery. Oophorectomy. Sinus Surgery. Tonsillectomy. --13:04 Ani Conway, R.Jaime.). SOCIAL HISTORY Never smoker. Occasional alcohol use. No drug use. No recent travel. Is a local resident. FAMILY HISTORY Negative. ADDITIONAL NOTES The nursing notes have been reviewed with agreement regarding the chief complaint, HPI, ROS, PMH and patient medications and allergies. PHYSICAL EXAM Vital Signs: 10/02/2016 13:00 BP: 159/92. HR: 87. RR: 18. O2 saturation: 100%. Temp: 97.6 F. Pain level now: 05/01. Have been reviewed as abnormal and appear to be correct. Hypertensive. Heart rate normal. Respiratory rate normal. Temperature normal. Oxygen saturation normal. Appearance: Alert. Oriented X3. No acute distress. Eyes: Pupils equal, round and reactive to light. Eyes normal inspection. Neck: Normal inspection. Neck supple. Respiratory: No respiratory distress. Skin: Skin intact. Skin warm and dry. Normal skin color. Normal skin turgor. Extremities: Left knee: moderate tenderness and mild swelling located in the patella. Limited ROM secondary to pain (diminished flexion, extension and external and internal rotation). Neurovascular intact distally. No ligamentous laxity present. No joint effusion. No erythema, laceration, abrasion, ecchymosis or puncture wound. No foreign body or deformity. Lower extremities do not exhibit normal ROM. Lower extremity edema present. Extremities otherwise negative. Gait: Abnormal gait. Gait not tested due to pain. (pt using crutches). Neuro: Oriented X 3. No motor deficit. No sensory deficit. PROGRESS AND PROCEDURES Patient counseled in person regarding the patient's stable condition and diagnosis. Differential Diagnosis: I considered fracture, stress fracture, bone contusion, sprain, hyperextension, meniscus tear, anterior cruciate ligament tear, ligament tear, soft tissue injury, soft tissue hematoma, compartment syndrome, myositis, tendonitis and deep venous thrombosis as a possible cause of lower extremity pain in this patient. This is a partial list of diagnoses considered. Above considerations are based on history and physical exam. Differential diagnosis was discussed with patient. Disposition: Discharged home in good and improved condition (13:39). Condition: good and stable. CLINICAL IMPRESSION Sprain of the medial collateral ligament of the left knee. INSTRUCTIONS Use crutches until released. Wear knee immobilizer until released. Warnings: GENERAL WARNINGS: Return or contact your physician immediately if your condition worsens or changes unexpectedly, if not improving as expected, or if other problems arise. Specifically return if problem worsens. Prescription Medications: Motrin 800 mg tablets: take 1 tablet orally every 8 hours as needed for pain. Dispense thirty (30). No refills. Substitution is permissible. Percocet 5 mg/325 mg: take 1 tablet orally every 6 hours as needed for pain. Dispense fifteen (15). No refills. Substitution is permissible. Follow-up: Follow up with your doctor Sunday as scheduled even if well. Summary of care provided to patient. Understanding of the discharge instructions verbalized by patient. (Electronically signed by Luciana Hu A.R.N.P. 10/02/2016 14:22)
--- NOTE | 2016-10-02 15:00 | ED MED RECONCILIATION SUMMARY ---
Patient: RUSSELL SEGOVIA Medication Reconciliation Report [facility] VisitID: [id number] [address] [place] [address] 35y, F Registration Date/Time: 10/02/2016 Weight: 74.8 kg Height/Length: 62 in. BMI: 30.2 ALLERGIES: No Known Drug Allergy The patient's Home Medications are listed below: THE FOLLOWING MEDICATIONS NEED TO BE RECONCILED: Ibuprofen Oral Vicodin Oral, taking 2 and not helping Vitamins The source(s) of the original Home Medication information: patient The following Medications were given to the patient in the Emergency Department: Toradol [IM] IM 60 mg, administered: 10/02/2016 1:52:00 PM The following Medications were prescribed to the patient: Motrin 800 mg tablets: take 1 tablet orally every 8 hours as needed for pain. Dispense thirty (30). No refills. Substitution is permissible. -- Luciana Hu, A.R.N.P. Percocet 5 mg/325 mg: take 1 tablet orally every 6 hours as needed for pain. Dispense fifteen (15). No refills. Substitution is permissible. -- Luciana Hu A.R.N.P.
--- NOTE | 2016-10-02 15:00 | ED MAR SUMMARY ---
..... Medication Administration Record [facility] [address] [place] [address] Patient: RUSSELL SEGOVIA Visit ID: [id number] 35y, F Weight: 74.8 kg Height/Length: 62 in BMI: 30.2 ALLERGIES: No Known Drug Allergy Given 13:52 10/02/2016 Ani Conway R.N. Medication Administered: TORADOL [IM] (KETOROLAC TROMETHAMINE), Dose: 60 mg IM. Medication Ordered: Toradol IM 60 mg (NOW).
--- NOTE | 2016-10-02 15:00 | ED MED RECONCILIATION SUMMARY ---
Patient: RUSSELL SEGOVIA Medication Reconciliation Report [facility] VisitID: [id number] [address] [place] [address] 35y, F Registration Date/Time: 10/02/2016 Weight: 74.8 kg Height/Length: 62 in. BMI: 30.2 ALLERGIES: No Known Drug Allergy The patient's Home Medications are listed below: THE FOLLOWING MEDICATIONS NEED TO BE RECONCILED: Ibuprofen Oral Vicodin Oral, taking 2 and not helping Vitamins The source(s) of the original Home Medication information: patient The following Medications were given to the patient in the Emergency Department: Toradol [IM] IM 60 mg, administered: 10/02/2016 1:52:00 PM The following Medications were prescribed to the patient: Motrin 800 mg tablets: take 1 tablet orally every 8 hours as needed for pain. Dispense thirty (30). No refills. Substitution is permissible. -- Luciana Hu, A.R.N.P. Percocet 5 mg/325 mg: take 1 tablet orally every 6 hours as needed for pain. Dispense fifteen (15). No refills. Substitution is permissible. -- Luciana Hu A.R.N.P.
--- NOTE | 2016-10-02 15:00 | ED MAR SUMMARY ---
..... Medication Administration Record [facility] [address] [place] [address] Patient: RUSSELL SEGOVIA Visit ID: [id number] 35y, F Weight: 74.8 kg Height/Length: 62 in BMI: 30.2 ALLERGIES: No Known Drug Allergy Given 13:52 10/02/2016 Ani Conway R.N. Medication Administered: TORADOL [IM] (KETOROLAC TROMETHAMINE), Dose: 60 mg IM. Medication Ordered: Toradol IM 60 mg (NOW).
--- NOTE | 2016-10-02 15:00 | ED DISCHARGE INSTRUCTIONS ---
Patient: RUSSELL SEGOVIA General Instructions [facility] VisitID: [id number] [place] [address] 35y, F Registration Date/Time: 10/02/2016 Sprain of the medial collateral ligament of the left knee. INSTRUCTIONS Use crutches until released. Wear knee immobilizer until released. Warnings: GENERAL WARNINGS: Return or contact your physician immediately if your condition worsens or changes unexpectedly, if not improving as expected, or if other problems arise. Specifically return if problem worsens. Prescription Medications: Motrin 800 mg tablets: take 1 tablet orally every 8 hours as needed for pain. Dispense thirty (30). No refills. Substitution is permissible. Percocet 5 mg/325 mg: take 1 tablet orally every 6 hours as needed for pain. Dispense fifteen (15). No refills. Substitution is permissible. Follow-up: Follow up with your doctor Sunday as scheduled even if well. Summary of care provided to patient. Understanding of the discharge instructions verbalized by patient. ADDITIONAL INFORMATION Sprain, Knee A sprain is an injury to the ligaments or capsule that holds a joint together. There are no broken bones. Most sprains take three to six weeks to heal. If the ligament is completely torn (severe sprain), it can take months to recover from. Most knee sprains are treated with a splint, knee immobilizer or elastic wrap for support. Severe sprains may require surgery. Home care The following guidelines will help you care for your injury at home: Stay off the injured leg as much as possible until you can walk on it without pain. If you have a lot of pain with walking, crutches or a walker may be prescribed. (These can be rented or purchased at many pharmacies and surgical or orthopedic supply stores). Follow your doctor's advice regarding when to begin bearing weight on that leg. Keep your leg elevated to reduce pain and swelling. When sleeping, place a pillow under the injured leg. When sitting, support the injured leg so it is level with your waist. This is very important during the first 48 hours. Apply an ice pack (ice cubes in a plastic bag, wrapped in a towel) over the injured area for 20 minutes every 12 hours the first day. You can place the ice pack directly over the splint. If a Velcro knee immobilizer was applied, you can open this to apply the ice pack directly to the knee. Continue with ice packs 34 times a day for the next two days, then as needed for the relief of pain and swelling. You may use acetaminophen or ibuprofen to control pain, unless another pain medicine was prescribed. If you have chronic liver or kidney disease or ever had a stomach ulcer or GI bleeding, talk with your doctor before using these medicines. If you were given a splint, keep it completely dry at all times. Bathe with your splint out of the water, protected with a large plastic bag, rubber-banded at the top end. If a fiberglass splint gets wet, you can dry it with a hair-dryer. If you have a Velcro knee immobilizer, you can remove this to bathe, unless told otherwise. Follow-up care Follow up with your doctor as advised. Any X-rays you had today dont show any broken bones, breaks, or fractures. Sometimes fractures dont show up on the first X-ray. Bruises and sprains can sometimes hurt as much as a fracture. These injuries can take time to heal completely. If your symptoms dont improve or they get worse, talk with your doctor. You may need a repeat X-ray. When to seek medical care Get prompt medical attention if any of the following occur: The plaster cast or splint becomes wet or soft The fiberglass cast or splint remains wet for more than 24 hours Pain or swelling increases Toes become cold, blue, numb or tingly Crutch Walking Crutch Adjustment Make sure the crutches you use are adjusted to fit you. When you stand, there should be room to fit 2-3 fingers between the top of the crutch and your armpit. Your elbow should be slightly bent when holding the hand crystal inspector. Crutch Walking: Place the crutches forward 12" in front of and 6" to the side of your feet. Lean your weight forward as you push down on the handgrips. Your weight should be on your hands and yourstrong leg, not your armpits . Let your body swing through, landing on the strong leg. Advance the crutches forward again. The crutch and the injured leg should move together. Going Up Steps: ("Up with the good") With both crutches on the same step as your feet, push down on the handgrips. Balancing with very light pressure on the weak leg, let your hands support your weight as you raise your strong leg onto the next higher step. Transfer all your weight to your strong leg (still bent) as you move the crutches up to the next step alongside the strong leg. With your weight evenly balanced on the two crutches and your strong leg, straighten your strong knee as you raise the weak leg up to the next step. Going Down Steps: ("Down with the bad") With both crutches on the same step as your feet, push down on the handgrips. With your weight evenly balanced on the two crutches and your strong leg, bend your strong knee as you lower the weak leg down to the next step. Let your strong leg support you (still bent) as you move the crutches down alongside the weak leg. Transfer your weight to your hands, balancing with very light pressure on the weak leg as you lower your strong leg alongside your weak leg. Knee Immobilizer A KNEE IMMOBILIZER is used to provide support and limit movement of the knee. This will make you more comfortable as your injury heals. Home Use: 1) Unless told otherwise, the knee brace should be worn whenever you are out of bed. You may wear it in bed while asleep for the first few nights or until the pain starts to go away. Otherwise, remove the brace at night to avoid muscle stiffness from lack of joint movement. 2) You can open the velcro brace to dress, bathe and apply ice packs as directed. Get Prompt Medical Attention if any of the following occur: -- Worsening pain in the knee -- Weakness or numbness or tingling in the foot -- Increased swelling, redness or warmth of the knee joint Ibuprofen Oral tablet What is this medicine? IBUPROFEN (eye BYOO proe fen) is a non-steroidal anti-inflammatory drug (NSAID). It is used for dental pain, fever, headaches or migraines, osteoarthritis, rheumatoid arthritis, or painful monthly periods. It can also relieve minor aches and pains caused by a cold, flu, or sore throat. How should I use this medicine? Take this medicine by mouth with a glass of water. Follow the directions on the prescription label. Take this medicine with food if your stomach gets upset. Try to not lie down for at least 10 minutes after you take the medicine. Take your medicine at regular intervals. Do not take your medicine more often than directed. A special MedGuide will be given to you by the pharmacist with each prescription and refill. Be sure to read this information carefully each time. Talk to your ancillary services manager regarding the use of this medicine in children. Special care may be needed. What side effects may I notice from receiving this medicine? Side effects that you should report to your doctor or health home care physical therapist as soon as possible: allergic reactions like skin rash, itching or hives, swelling of the face, lips, or tongue black or bloody stools, blood in the urine or in vomit breathing problems changes in vision chest pain general ill feeling or flu-like symptoms nausea or vomiting redness, blistering, peeling or loosening of the skin, including inside the mouth slurred speech or weakness on one side of the body stomach pain unexplained weight gain or swelling unusually weak or tired yellowing of eyes or skin Side effects that usually do not require medical attention (report to your doctor or health home care physical therapist if they continue or are bothersome): constipation or diarrhea dizziness gas or heartburn stomach upset What may interact with this medicine? Do not take this medicine with any of the following medications: cidofovir ketorolac methotrexate pemetrexed This medicine may also interact with the following medications: alcohol aspirin diuretics lithium other drugs for inflammation like prednisone warfarin What if I miss a dose? If you miss a dose, take it as soon as you can. If it is almost time for your next dose, take only that dose. Do not take double or extra doses. Where should I keep my medicine? Keep out of the reach of children. Store at room temperature between 15 and 30 degrees C (59 and 86 degrees F). Keep container tightly closed. Throw away any unused medicine after the expiration date. What should I tell my health care provider before I take this medicine? They need to know if you have any of these conditions: asthma cigarette smoker drink more than 3 alcohol containing drinks a day heart disease or circulation problems such as heart failure or leg edema (fluid retention) high blood pressure kidney disease liver disease stomach bleeding or ulcers an unusual or allergic reaction to ibuprofen, aspirin, other NSAIDS, other medicines, foods, dyes, or preservatives or trying to get breast-feeding What should I watch for while using this medicine? Tell your doctor or healthcare professional if your symptoms do not start to get better or if they get worse. This medicine does not prevent heart attack or stroke. In fact, this medicine may increase the chance of a heart attack or stroke. The chance may increase with longer use of this medicine and in people who have heart disease. If you take aspirin to prevent heart attack or stroke, talk with your doctor or health home care physical therapist. Do not take other medicines that contain aspirin, ibuprofen, or naproxen with this medicine. Side effects such as stomach upset, nausea, or ulcers may be more likely to occur. Many medicines available without a prescription should not be taken with this medicine. This medicine can cause ulcers and bleeding in the stomach and intestines at any time during treatment. Ulcers and bleeding can happen without warning symptoms and can cause . To reduce your risk, do not smoke cigarettes or drink alcohol while you are taking this medicine. You may get drowsy or dizzy. Do not drive, use machinery, or do anything that needs mental alertness until you know how this medicine affects you. Do not stand or sit up quickly, especially if you are an older patient. This reduces the risk of dizzy or fainting spells. This medicine can cause you to bleed more easily. Try to avoid damage to your teeth and gums when you brush or floss your teeth. Oxycodone Hydrochloride, Acetaminophen Oral tablet What is this medicine? ACETAMINOPHEN; OXYCODONE (a set a DAVID dianelys fen; ox i KOE done) is a pain reliever. It is used to treat mild to moderate pain. How should I use this medicine? Take this medicine by mouth with a full glass of water. Follow the directions on the prescription label. Take your medicine at regular intervals. Do not take your medicine more often than directed. Talk to your ancillary services manager regarding the use of this medicine in children. Special care may be needed. Patients over 65 years old may have a stronger reaction and need a smaller dose. What side effects may I notice from receiving this medicine? Side effects that you should report to your doctor or health home care physical therapist as soon as possible: allergic reactions like skin rash, itching or hives, swelling of the face, lips, or tongue breathing difficulties, wheezing confusion light headedness or fainting spells severe stomach pain yellowing of the skin or the whites of the eyes Side effects that usually do not require medical attention (report to your doctor or health home care physical therapist if they continue or are bothersome): dizziness drowsiness nausea vomiting What may interact with this medicine? alcohol antihistamines barbiturates like amobarbital, butalbital, butabarbital, methohexital, pentobarbital, phenobarbital, thiopental, and secobarbital benztropine drugs for bladder problems like solifenacin, trospium, oxybutynin, tolterodine, hyoscyamine, and methscopolamine drugs for breathing problems like ipratropium and tiotropium drugs for certain stomach or intestine problems like propantheline, homatropine methylbromide, glycopyrrolate, atropine, belladonna, and dicyclomine general anesthetics like etomidate, ketamine, nitrous oxide, propofol, desflurane, enflurane, halothane, isoflurane, and sevoflurane medicines for depression, anxiety, or psychotic disturbances medicines for sleep muscle relaxants naltrexone narcotic medicines (opiates) for pain phenothiazines like perphenazine, thioridazine, chlorpromazine, mesoridazine, fluphenazine, prochlorperazine, promazine, and trifluoperazine scopolamine tramadol trihexyphenidyl What if I miss a dose? If you miss a dose, take it as soon as you can. If it is almost time for your next dose, take only that dose. Do not take double or extra doses. Where should I keep my medicine? Keep out of the reach of children. This medicine can be abused. Keep your medicine in a safe place to protect it from theft. Do not share this medicine with anyone. Selling or giving away this medicine is dangerous and against the law. Store at room temperature between 20 and 25 degrees C (68 and 77 degrees F). Keep container tightly closed. Protect from light. This medicine may cause accidental overdose and if it is taken by other adults, children, or pets. Flush any unused medicine down the toilet to reduce the chance of harm. Do not use the medicine after the expiration date. What should I tell my health care provider before I take this medicine? They need to know if you have any of these conditions: brain tumor Crohn's disease, inflammatory bowel disease, or ulcerative colitis drink more than 3 alcohol containing drinks per day drug abuse or addiction head injury heart or circulation problems kidney disease or problems going to the bathroom liver disease lung disease, asthma, or breathing problems an unusual or allergic reaction to acetaminophen, oxycodone, other opioid analgesics, other medicines, foods, dyes, or preservatives or trying to get breast-feeding What should I watch for while using this medicine? Tell your doctor or health home care physical therapist if your pain does not go away, if it gets worse, or if you have new or a different type of pain. You may develop tolerance to the medicine. Tolerance means that you will need a higher dose of the medication for pain relief. Tolerance is normal and is expected if you take this medicine for a long time. Do not suddenly stop taking your medicine because you may develop a severe reaction. Your body becomes used to the medicine. This does NOT mean you are addicted. Addiction is a behavior related to getting and using a drug for a non-medical reason. If you have pain, you have a medical reason to take pain medicine. Your doctor will tell you how much medicine to take. If your doctor wants you to stop the medicine, the dose will be slowly lowered over time to avoid any side effects. You may get drowsy or dizzy. Do not drive, use machinery, or do anything that needs mental alertness until you know how this medicine affects you. Do not stand or sit up quickly, especially if you are an older patient. This reduces the risk of dizzy or fainting spells. Alcohol may interfere with the effect of this medicine. Avoid alcoholic drinks. There are different types of narcotic medicines (opiates) for pain. If you take more than one type at the same time, you may have more side effects. Give your health care provider a list of all medicines you use. Your doctor will tell you how much medicine to take. Do not take more medicine than directed. Call emergency for help if you have problems breathing. The medicine will cause constipation. Try to have a bowel movement at least every 2 to 3 days. If you do not have a bowel movement for 3 days, call your doctor or health home care physical therapist. Do not take Tylenol (acetaminophen) or medicines that have acetaminophen with this medicine. Too much acetaminophen can be very dangerous. Many nonprescription medicines contain acetaminophen. Always read the labels carefully to avoid taking more acetaminophen. You have been given the following additional information: Knee Sprain Crutch Walking Knee Immobilizer Ibuprofen Oral tablet Oxycodone Hydrochloride, Acetaminophen Oral tablet (Electronically signed by Luciana Hu A.R.N.P. 10/02/2016 14:22)
== END 2016-10-02 13:55 | disposition home or self-care (01) ==
LOC: ED SRH 12:42
DX: S83.412A Sprain of medial collateral ligament of left knee, initial encounter (principal); W18.2XXA Fall in (into) shower or empty bathtub, initial encounter; Y93.9 Activity, unspecified; Y92.002 Bathroom of unspecified non-institutional (private) residence as the place of occurrence of the external cause; Y99.9 Unspecified external cause status

== ENCOUNTER 2016-10-08 12:59 | Emergency (ER) | payer OTHER ==
--- NOTE | 2016-10-08 15:09 | ED NURSING NOTES ---
Clinical Report - Nurses [facility] [address] [place] [address] 10/08/2016 13:00 Patient: RUSSELL SEGOVIA TRIAGE Triage time 13:Oct 08 2016. Acuity: LEVEL 4. SEPSIS SCREEN: Sepsis Screen: negative. Negative (no infection suspected/documented). DAR COMA SCORE: [place] Coma Scale: 15- eyes open spontaneously (4); best verbal response- oriented x 4 (5); best motor response- obeys commands (6). --13:33 Starla Alonzo 13:29 10/08/16. BP: 158/91. HR: 97. RR: 20. O2 saturation: 100%. Temp: 98.3 F (oral). Pain level now: 05/01. --13:33 Starla Alonzo Chief Complaint: RIGHT LOWER EXTREMITY PAIN. --15:49 Starla Alonzo. Weight: 74.8 kg stated. Height/Length: 62 inches Per Patient. BMI: 30.2. --13:32 Starla Alonzo. Medications Ibuprofen Oral. --13:31 Starla Alonzo Percocet Oral. --13:31 Starla Alonzo. Medication/allergy information source: the patient. --13:33 Starla Alonzo. Allergies No Known Drug Allergy. --13:31 Starla Alonzo. History Arrived by private vehicle. Historian: patient. Unaccompanied. Primary physician ([facility]). Injury occurred. This occurred (1 weeks). ( Patient report a fall in the shower about one week ago, she was told she may have torn her meniscus and has been in uncontrolled pain since. She states she is to have an MRI but the appointment has yet to be set.). 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 PAST MEDICAL HX: Tetanus status: up-to-date. Immunizations: up-to-date. Last normal menstrual period- 2 weeks ago. SOCIAL HX: Never smoker. Occasional alcohol use. No drug use. No infectious disease exposure. ABUSE ASSESSMENT: No report of abuse. FALL RISK ASSESSMENT: Fall risk assessment completed. No fall risk identified. NUTRITIONAL RISK ASSESSMENT: The nutritional risk assessment revealed no deficiencies. FUNCTIONAL ASSESSMENT: Functional assessment: no impairments noted. LEARNING NEEDS ASSESSMENT: The learning needs assessment revealed no barriers. SKIN INTEGRITY ASSESSMENT: Skin integrity risk assessment completed. No skin integrity risk identified. --13:33 Starla Alonzo. PROBLEMS: Sprain. Ovarian Cyst. LNMP - Last Normal Menstrual Period. --13:31 Starla Alonzo. ADDITIONAL SURGERIES: Adenoidectomy. Appendectomy. Breast reduction . Dental Surgery. Hernia Repair. Knee Surgery. Oophorectomy. Sinus Surgery. Tonsillectomy. --13:31 Starla Alonzo. Interventions ID band on patient. To treatment room. --13:33 Starla Alonzo. PHYSICAL ASSESSMENT Ambulatory to room. (crutches and knee brace). GENERAL / NEURO / PSYCH: Oriented X 4. Alert. Appears in no acute distress. EXTREMITIES: Extremity pulses are within normal limits. Neuro-vascular status intact to the extremity. No lower extremity edema. Left knee: tenderness. Limited ROM secondary to pain. SKIN: Skin is warm and dry. --13:33 Starla Alonzo. NURSING PROGRESS NOTES 13:34 10/08/16. Cold pack applied. Extremity elevated. Patient gowned. Reassurance given to the patient. Two patient identifiers checked. Call light placed in reach. Side rails up x 1. Bed placed in lowest position. Brakes of bed on. Patient ready for evaluation- chart flagged and ED physician notified. --13:34 Starla Alonzo 13:54 10/08/2016 Percocet (Oxycodone-Acetaminophen) PO 5/325 mg Tablets 2 tab given. Allergies verified, confirmed 5 rights and sedative warning given to the patient. --13:54 tSarla Alonzo 13:54 10/08/16. BP: 145/84. HR: 88. O2 saturation: 98% on room air. Pain level now: 05/01. --13:54 Starla Alonzo Urine test negative. --14:13 Starla Alonzo The patient is resting quietly. --14:48 Starla Alonzo Patient transported to [place] by stretcher with tech. (14:49 Mar 19 2017). --14:49 Starla Alonzo. DISPOSITION / DISCHARGE 15:10 10/08/16. BP: 141/82. HR: 75. RR: 20. O2 saturation: 97%. Pain level now: 05/01. --15:11 Starla Alonzo 15:15 10/08/16. Condition at departure: stable. The goals identified in the patient's plan of care were met. ( Patient assisted back into knee immobilizer.). No learning barriers present. Discharge instructions provided and reviewed with the patient. Reviewed warnings (Do not drive while on sedative medications). Reviewed medication(s) side effects, precautions, dosing and course information. Prescription(s) given to the patient. Activity restrictions (minimal use of injured extremity) reviewed. Work note given. Patient verbalized understanding. Written instructions provided in Spanish. ( Follow up with your PCP in three days. Ice and elevate affected extremity). The patient was discharged by the physician. She was discharged home and accompanied by spouse. She left the Emergency Department ambulatory and via private vehicle. Spouse driving. FALL RISK ASSESSMENT: Fall risk assessment completed. No fall risk identified. --15:49 Starla Alonzo. Locked/Released at 10/08/2016 15:50 by Starla Alonzo,
--- NOTE | 2016-10-08 15:09 | ED CLINICAL REPORT ---
Clinical Report - Physicians/Mid Levels [facility] [address] [place] [address] 10/08/2016 13:00 Patient: RUSSELL SGEOVIA Time Seen: 1340. Arrived- By private vehicle. Historian- patient. HISTORY OF PRESENT ILLNESS Chief Complaint: Injury to right knee. The injury happened last week. Occurred at home. Fell (in the shower). Patient is experiencing moderate pain. Patient denies injury to the head or neck. No other injury. REVIEW OF SYSTEMS The patient complains of pain on weight bearing. She has had swelling. No weakness, numbness, suspected foreign body or skin laceration. All systems otherwise negative, except as recorded above. PAST HISTORY See nurses notes. Tetanus immunization status is up-to-date. Medications: Percocet Oral. Ibuprofen Oral. Allergies: No Known Drug Allergy. SOCIAL HISTORY Never smoker. Occasional alcohol use. No drug use. No recent travel. Is a local resident. ADDITIONAL NOTES The nursing notes have been reviewed. PHYSICAL EXAM Vital Signs: 10/08/2016 13:29 BP: 158/91. HR: 97. RR: 20. O2 saturation: 100%. Temp: 98.3 F. Pain level now: 10/10. Blood pressure normal. Oxygen saturation normal. Appearance: Alert. Oriented X3. No acute distress. Head: Head atraumatic. Eyes: Pupils equal, round and reactive to light. Eyes normal inspection. ENT: Ears normal. Nose normal. Pharynx normal. Neck: Normal inspection. Neck supple. C-spine non-tender. CVS: Normal heart rate and rhythm. Heart sounds normal. Pulses normal. Respiratory: No respiratory distress. Breath sounds normal. Chest nontender. No rales, rhonchi or wheezes. Abdomen: No visible injury. Soft and nontender. Bowel sounds normal. Back: Normal inspection. No tenderness. ROM normal. Extremities: (mild tenderness to palpation at the anterior aspect of the right patella. No bogginess. No crepitus. No bony abnormalities. Minimal joint effusion noted. No increased warmth or overlying erythema. No overlying skin changes Knee is ligamentously stable and symmetrical to the contralateral side. No hip tenderness or ankle/foot tenderness/injury. DP and PT pulses are 2+ and symmetrical to the contralateral side. Sensation is grossly intact.). Neuro, Vascular and Tendons: Vascular status intact. Sensation intact. Motor intact. Tendon function intact. LABS, X-RAYS, AND EKG Note - Special Studies: PROCEDURE: CT LOWER EXT W/O CONTRAST-LEFT CLINICAL INDICATION: Persistent left knee pain after injury. TECHNIQUE: Thin-cut noncontrast axial images with sagittal and coronal reformations. COMPARISON: Comparison made radiographs of the left knee on 09/30/2016. FINDINGS: There are mild degenerative changes of the medial compartment with small peripheral osteophytes. Lateral compartment and left patellofemoral joint are normal. No evidence of fracture. No evidence of effusion. IMPRESSION: 1. Mild degenerative change of the medial compartment of the left knee. 2. No evidence of acute fracture. 3. If symptoms persist, MRI would be recommended. discussed with radiology via phone and PACs. Reviewed by me personally as well. Agree findings. PROGRESS AND PROCEDURES Course of Care: he patient is a pleasant 35 role female presenting for evaluation of right-sided knee pain following the fall in the shower. Patient has no neurovascular compromise at this time. Pain medications been offered here in the emergency department. X-rays are noted to be negative from her initial visit. Because of the patient's persistent pain, would be concerned for undiagnosed fracture/dislocation. Patient has an MRI scheduled. No MRI availability at this time. Do not feel MRI is indicated from the emergency department. Did offer patient further evaluation with CT scan for better evaluation of any potential osseous abnormalities. Patient is agreeable to the treatment and plan. Patient's CT scan is noted for no acute findings as noted above. Workup was discussed the patient here in the emergency department as well as her diagnosis, home care, follow-up, and return precautions. I discussion with patient in regards to compartment syndrome and reasons to return to the emergency department. Do not fill patient has compartment syndrome or is at risk for compartment syndrome as her injury occurred approximately 1 week ago and does not have any significant swelling. Did encourage patient to continue to pursue her MRI evaluation. Do not fill patient is admitted to the hospital require further emergency department workup/evaluation. Upon reevaluation, patient is resting in bed and in no acute distress. Patient's extremity continues to be neurovascularly intact. Disposition: Discharged. Condition: good. CLINICAL IMPRESSION Left knee sprain (subsequent encounter). INSTRUCTIONS Off work until well, until released. Warnings: GENERAL WARNINGS: Return or contact your physician immediately if your condition worsens or changes unexpectedly, if not improving as expected, or if other problems arise. Specifically return if pain, vomiting, bleeding, breathing difficulty or fever. Your Current Medications: CONTINUE TAKING THE FOLLOWING MEDICATIONS: Ibuprofen Oral. Percocet Oral. Prescription Medications: Percocet 5 mg/325 mg: take 1-2 tablets orally every 6 hours as needed for pain. Dispense fifteen (15). No refill. Substitution is permissible. Follow-up: Return to the emergency department as needed. Follow up with your doctor in three days. Reason for referral: recheck today's concerns. Summary of care provided to patient via paper. Screening today revealed the patient's blood pressure to be in the normal range. The patient should follow up with a primary care provider for blood pressure management. Understanding of the discharge instructions verbalized by patient. (Electronically signed by Sha Moody Dr. 10/14/2016 22:28)
--- NOTE | 2016-10-08 15:09 | ED NURSING NOTES ---
Clinical Report - Nurses [facility] [address] [place] [address] 10/08/2016 13:00 Patient: RUSSELL SEGOVIA TRIAGE Triage time 13:Oct 08 2016. Acuity: LEVEL 4. SEPSIS SCREEN: Sepsis Screen: negative. Negative (no infection suspected/documented). DAR COMA SCORE: [place] Coma Scale: 15- eyes open spontaneously (4); best verbal response- oriented x 4 (5); best motor response- obeys commands (6). --13:33 Starla Alonzo 13:29 10/08/16. BP: 158/91. HR: 97. RR: 20. O2 saturation: 100%. Temp: 98.3 F (oral). Pain level now: 05/01. --13:33 Starla Alonzo Chief Complaint: RIGHT LOWER EXTREMITY PAIN. --15:49 Starla Alonzo. Weight: 74.8 kg stated. Height/Length: 62 inches Per Patient. BMI: 30.2. --13:32 Starla Alonzo. Medications Ibuprofen Oral. --13:31 Starla Alonzo Percocet Oral. --13:31 Starla Alonzo. Medication/allergy information source: the patient. --13:33 Starla Alonzo. Allergies No Known Drug Allergy. --13:31 Starla Alonzo. History Arrived by private vehicle. Historian: patient. Unaccompanied. Primary physician ([facility]). Injury occurred. This occurred (1 weeks). ( Patient report a fall in the shower about one week ago, she was told she may have torn her meniscus and has been in uncontrolled pain since. She states she is to have an MRI but the appointment has yet to be set.). 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 PAST MEDICAL HX: Tetanus status: up-to-date. Immunizations: up-to-date. Last normal menstrual period- 2 weeks ago. SOCIAL HX: Never smoker. Occasional alcohol use. No drug use. No infectious disease exposure. ABUSE ASSESSMENT: No report of abuse. FALL RISK ASSESSMENT: Fall risk assessment completed. No fall risk identified. NUTRITIONAL RISK ASSESSMENT: The nutritional risk assessment revealed no deficiencies. FUNCTIONAL ASSESSMENT: Functional assessment: no impairments noted. LEARNING NEEDS ASSESSMENT: The learning needs assessment revealed no barriers. SKIN INTEGRITY ASSESSMENT: Skin integrity risk assessment completed. No skin integrity risk identified. --13:33 Starla Alonzo. PROBLEMS: Sprain. Ovarian Cyst. LNMP - Last Normal Menstrual Period. --13:31 Starla Alonzo. ADDITIONAL SURGERIES: Adenoidectomy. Appendectomy. Breast reduction . Dental Surgery. Hernia Repair. Knee Surgery. Oophorectomy. Sinus Surgery. Tonsillectomy. --13:31 Starla Alonzo. Interventions ID band on patient. To treatment room. --13:33 Starla Alonzo. PHYSICAL ASSESSMENT Ambulatory to room. (crutches and knee brace). GENERAL / NEURO / PSYCH: Oriented X 4. Alert. Appears in no acute distress. EXTREMITIES: Extremity pulses are within normal limits. Neuro-vascular status intact to the extremity. No lower extremity edema. Left knee: tenderness. Limited ROM secondary to pain. SKIN: Skin is warm and dry. --13:33 Starla Alonzo. NURSING PROGRESS NOTES 13:34 10/08/16. Cold pack applied. Extremity elevated. Patient gowned. Reassurance given to the patient. Two patient identifiers checked. Call light placed in reach. Side rails up x 1. Bed placed in lowest position. Brakes of bed on. Patient ready for evaluation- chart flagged and ED physician notified. --13:34 Starla Alonzo 13:54 10/08/2016 Percocet (Oxycodone-Acetaminophen) PO 5/325 mg Tablets 2 tab given. Allergies verified, confirmed 5 rights and sedative warning given to the patient. --13:54 Starla Alonzo 13:54 10/08/16. BP: 145/84. HR: 88. O2 saturation: 98% on room air. Pain level now: 05/01. --13:54 Starla Alonzo Urine test negative. --14:13 Starla Alonzo The patient is resting quietly. --14:48 Starla Alonzo Patient transported to DC by stretcher with tech. (14:49 Mar 19 2017). --14:49 Starla Alonzo. DISPOSITION / DISCHARGE 15:10 10/08/16. BP: 141/82. HR: 75. RR: 20. O2 saturation: 97%. Pain level now: 05/01. --15:11 Starla Alonzo 15:15 10/08/16. Condition at departure: stable. The goals identified in the patient's plan of care were met. ( Patient assisted back into knee immobilizer.). No learning barriers present. Discharge instructions provided and reviewed with the patient. Reviewed warnings (Do not drive while on sedative medications). Reviewed medication(s) side effects, precautions, dosing and course information. Prescription(s) given to the patient. Activity restrictions (minimal use of injured extremity) reviewed. Work note given. Patient verbalized understanding. Written instructions provided in Ukrainian. ( Follow up with your PCP in three days. Ice and elevate affected extremity). The patient was discharged by the physician. She was discharged home and accompanied by spouse. She left the Emergency Department ambulatory and via private vehicle. Spouse driving. FALL RISK ASSESSMENT: Fall risk assessment completed. No fall risk identified. --15:49 Starla Alonzo. Locked/Released at 10/08/2016 15:50 by Starla Alonzo,
--- NOTE | 2016-10-08 15:09 | ED ORDER SUMMARY ---
..... Patient: RUSSELL SEGOVIA OrderSheet [facility] VisitID: [id number] [place] [address] 35y, F Registration Date/Time: 10/08/2016 ORDER SHEET Weight: 74.8 kg (stated) Allergies: No Known Drug Allergy GENERAL ORDERS: CT Lower Extremity Without Contrast - Left Urgent (13:48 10/08/2016 Phillip Velasquez) (Ack 13:56 Josh) (15:10 HSoule) Ice (13:49 10/08/2016 Phillip Velasquez) (13:51 HSoule) Urine Urgent (14:05 10/08/2016 Phillip Velasquez) (Ack 14:06 Josh) (14:13 HSoule) MEDICATION ORDERS: Percocet PO 10/650 mg (HIGH ALERT MEDICATION, NOW) (13:48 10/08/2016 Phillip Velasquez) (Ack 13:51 HSoule) (13:54 HSoule) IV FLUIDS: ORDER SHEET NOTES: [Electronically signed by Starla Alonzo (15:50 10/08/2016)] [Electronically signed by Sha Moody Dr. (22:28 10/14/2016)] [Electronically locked/signed by Starla Alonzo (15:50 10/08/2016)]
--- NOTE | 2016-10-08 15:09 | ED ORDER SUMMARY ---
..... Patient: RUSSELL SEGOVIA OrderSheet [facility] VisitID: [id number] [place] [address] 35y, F Registration Date/Time: 10/08/2016 ORDER SHEET Weight: 74.8 kg (stated) Allergies: No Known Drug Allergy GENERAL ORDERS: CT Lower Extremity Without Contrast - Left Urgent (13:48 10/08/2016 Phillip Velasquez) (Ack 13:56 Josh) (15:10 HSoule) Ice (13:49 10/08/2016 Phillip Velasquez) (13:51 HSoule) Urine Urgent (14:05 10/08/2016 Phillip Velasquez) (Ack 14:06 Josh) (14:13 HSoule) MEDICATION ORDERS: Percocet PO 10/650 mg (HIGH ALERT MEDICATION, NOW) (13:48 10/08/2016 Phillip Velasquez) (Ack 13:51 HSoule) (13:54 HSoule) IV FLUIDS: ORDER SHEET NOTES: [Electronically signed by Starla Alonzo (15:50 10/08/2016)] [Electronically signed by Sha Moody Dr. (22:28 10/14/2016)] [Electronically locked/signed by Starla Alonzo (15:50 10/08/2016)]
--- NOTE | 2016-10-08 16:07 | DIAGNOSTIC IMAGING REPORT ---
PROCEDURE: CT LOWER EXT W/O CONTRAST-LEFT CLINICAL INDICATION: Persistent left knee pain after injury. TECHNIQUE: Thin-cut noncontrast axial images with sagittal and coronal reformations. COMPARISON: Comparison made radiographs of the left knee on 09/30/2016. FINDINGS: There are mild degenerative changes of the medial compartment with small peripheral osteophytes. Lateral compartment and left patellofemoral joint are normal. No evidence of fracture. No evidence of effusion. IMPRESSION: 1. Mild degenerative change of the medial compartment of the left knee. 2. No evidence of acute fracture. 3. If symptoms persist, MRI would be recommended. 4. Findings discussed with Dr. Sha Moody. All CT scans at this facility use dose modulation, iterative reconstruction, and/or weight-based dosing when appropriate to reduce radiation dose to as low as reasonably achievable.
--- NOTE | 2016-10-14 22:28 | ED DISCHARGE INSTRUCTIONS ---
Patient: RUSSELL SEGOVIA General Instructions [facility] VisitID: [id number] [place] [address] 35y, F Registration Date/Time: 10/08/2016 Left knee sprain (subsequent encounter). INSTRUCTIONS Off work until well, until released. Warnings: GENERAL WARNINGS: Return or contact your physician immediately if your condition worsens or changes unexpectedly, if not improving as expected, or if other problems arise. Specifically return if pain, vomiting, bleeding, breathing difficulty or fever. Your Current Medications: CONTINUE TAKING THE FOLLOWING MEDICATIONS: Ibuprofen Oral. Percocet Oral. Prescription Medications: Percocet 5 mg/325 mg: take 1-2 tablets orally every 6 hours as needed for pain. Dispense fifteen (15). No refill. Substitution is permissible. Follow-up: Return to the emergency department as needed. Follow up with your doctor in three days. Reason for referral: recheck today's concerns. Summary of care provided to patient via paper. Screening today revealed the patient's blood pressure to be in the normal range. The patient should follow up with a primary care provider for blood pressure management. Understanding of the discharge instructions verbalized by patient. ADDITIONAL INFORMATION Sprain, Knee A sprain is an injury to the ligaments or capsule that holds a joint together. There are no broken bones. Most sprains take three to six weeks to heal. If the ligament is completely torn (severe sprain), it can take months to recover from. Most knee sprains are treated with a splint, knee immobilizer or elastic wrap for support. Severe sprains may require surgery. Home care The following guidelines will help you care for your injury at home: Stay off the injured leg as much as possible until you can walk on it without pain. If you have a lot of pain with walking, crutches or a walker may be prescribed. (These can be rented or purchased at many pharmacies and surgical or orthopedic supply stores). Follow your doctor's advice regarding when to begin bearing weight on that leg. Keep your leg elevated to reduce pain and swelling. When sleeping, place a pillow under the injured leg. When sitting, support the injured leg so it is level with your waist. This is very important during the first 48 hours. Apply an ice pack (ice cubes in a plastic bag, wrapped in a towel) over the injured area for 20 minutes every 12 hours the first day. You can place the ice pack directly over the splint. If a Velcro knee immobilizer was applied, you can open this to apply the ice pack directly to the knee. Continue with ice packs 34 times a day for the next two days, then as needed for the relief of pain and swelling. You may use acetaminophen or ibuprofen to control pain, unless another pain medicine was prescribed. If you have chronic liver or kidney disease or ever had a stomach ulcer or GI bleeding, talk with your doctor before using these medicines. If you were given a splint, keep it completely dry at all times. Bathe with your splint out of the water, protected with a large plastic bag, rubber-banded at the top end. If a fiberglass splint gets wet, you can dry it with a hair-dryer. If you have a Velcro knee immobilizer, you can remove this to bathe, unless told otherwise. Follow-up care Follow up with your doctor as advised. Any X-rays you had today dont show any broken bones, breaks, or fractures. Sometimes fractures dont show up on the first X-ray. Bruises and sprains can sometimes hurt as much as a fracture. These injuries can take time to heal completely. If your symptoms dont improve or they get worse, talk with your doctor. You may need a repeat X-ray. When to seek medical care Get prompt medical attention if any of the following occur: The plaster cast or splint becomes wet or soft The fiberglass cast or splint remains wet for more than 24 hours Pain or swelling increases Toes become cold, blue, numb or tingly Oxycodone Hydrochloride, Acetaminophen Oral tablet What is this medicine? ACETAMINOPHEN; OXYCODONE (a set a DAVID dianelys fen; ox i KOE done) is a pain reliever. It is used to treat mild to moderate pain. How should I use this medicine? Take this medicine by mouth with a full glass of water. Follow the directions on the prescription label. Take your medicine at regular intervals. Do not take your medicine more often than directed. Talk to your bath steward/stewardess regarding the use of this medicine in children. Special care may be needed. Patients over 65 years old may have a stronger reaction and need a smaller dose. What side effects may I notice from receiving this medicine? Side effects that you should report to your doctor or health career information specialist as soon as possible: allergic reactions like skin rash, itching or hives, swelling of the face, lips, or tongue breathing difficulties, wheezing confusion light headedness or fainting spells severe stomach pain yellowing of the skin or the whites of the eyes Side effects that usually do not require medical attention (report to your doctor or health career information specialist if they continue or are bothersome): dizziness drowsiness nausea vomiting What may interact with this medicine? alcohol antihistamines barbiturates like amobarbital, butalbital, butabarbital, methohexital, pentobarbital, phenobarbital, thiopental, and secobarbital benztropine drugs for bladder problems like solifenacin, trospium, oxybutynin, tolterodine, hyoscyamine, and methscopolamine drugs for breathing problems like ipratropium and tiotropium drugs for certain stomach or intestine problems like propantheline, homatropine methylbromide, glycopyrrolate, atropine, belladonna, and dicyclomine general anesthetics like etomidate, ketamine, nitrous oxide, propofol, desflurane, enflurane, halothane, isoflurane, and sevoflurane medicines for depression, anxiety, or psychotic disturbances medicines for sleep muscle relaxants naltrexone narcotic medicines (opiates) for pain phenothiazines like perphenazine, thioridazine, chlorpromazine, mesoridazine, fluphenazine, prochlorperazine, promazine, and trifluoperazine scopolamine tramadol trihexyphenidyl What if I miss a dose? If you miss a dose, take it as soon as you can. If it is almost time for your next dose, take only that dose. Do not take double or extra doses. Where should I keep my medicine? Keep out of the reach of children. This medicine can be abused. Keep your medicine in a safe place to protect it from theft. Do not share this medicine with anyone. Selling or giving away this medicine is dangerous and against the law. Store at room temperature between 20 and 25 degrees C (68 and 77 degrees F). Keep container tightly closed. Protect from light. This medicine may cause accidental overdose and if it is taken by other adults, children, or pets. Flush any unused medicine down the toilet to reduce the chance of harm. Do not use the medicine after the expiration date. What should I tell my health care provider before I take this medicine? They need to know if you have any of these conditions: brain tumor Crohn's disease, inflammatory bowel disease, or ulcerative colitis drink more than 3 alcohol containing drinks per day drug abuse or addiction head injury heart or circulation problems kidney disease or problems going to the bathroom liver disease lung disease, asthma, or breathing problems an unusual or allergic reaction to acetaminophen, oxycodone, other opioid analgesics, other medicines, foods, dyes, or preservatives or trying to get breast-feeding What should I watch for while using this medicine? Tell your doctor or health career information specialist if your pain does not go away, if it gets worse, or if you have new or a different type of pain. You may develop tolerance to the medicine. Tolerance means that you will need a higher dose of the medication for pain relief. Tolerance is normal and is expected if you take this medicine for a long time. Do not suddenly stop taking your medicine because you may develop a severe reaction. Your body becomes used to the medicine. This does NOT mean you are addicted. Addiction is a behavior related to getting and using a drug for a non-medical reason. If you have pain, you have a medical reason to take pain medicine. Your doctor will tell you how much medicine to take. If your doctor wants you to stop the medicine, the dose will be slowly lowered over time to avoid any side effects. You may get drowsy or dizzy. Do not drive, use machinery, or do anything that needs mental alertness until you know how this medicine affects you. Do not stand or sit up quickly, especially if you are an older patient. This reduces the risk of dizzy or fainting spells. Alcohol may interfere with the effect of this medicine. Avoid alcoholic drinks. There are different types of narcotic medicines (opiates) for pain. If you take more than one type at the same time, you may have more side effects. Give your health care provider a list of all medicines you use. Your doctor will tell you how much medicine to take. Do not take more medicine than directed. Call emergency for help if you have problems breathing. The medicine will cause constipation. Try to have a bowel movement at least every 2 to 3 days. If you do not have a bowel movement for 3 days, call your doctor or health career information specialist. Do not take Tylenol (acetaminophen) or medicines that have acetaminophen with this medicine. Too much acetaminophen can be very dangerous. Many nonprescription medicines contain acetaminophen. Always read the labels carefully to avoid taking more acetaminophen. You have been given the following additional information: Knee Sprain Oxycodone Hydrochloride, Acetaminophen Oral tablet Off work until well, until released. (Electronically signed by Sha Moody Dr. 10/14/2016 22:28)
--- NOTE | 2016-10-14 22:28 | ED MAR SUMMARY ---
..... Medication Administration Record [address] [place] [address] Patient: RUSSELL SEGOVIA Visit ID: [id number] 35y, F Weight: 74.8 kg Height/Length: 62 in BMI: 30.2 ALLERGIES: No Known Drug Allergy Given 13:54 10/08/2016 Starla Alonzo, Medication Administered: PERCOCET [PO] (OXYCODONE-ACETAMINOPHEN), Dose: 2 tab 5/325 mg Tablets PO. Medication Ordered: Percocet PO 10/650 mg (HIGH ALERT MEDICATION, NOW).
--- NOTE | 2016-10-14 22:28 | ED MED RECONCILIATION SUMMARY ---
Patient: RUSSELL SEGOVIA Medication Reconciliation Report [facility] VisitID: [id number] [address] [place] [address] 35y, F Registration Date/Time: 10/08/2016 Weight: 74.8 kg Height/Length: 62 in. BMI: 30.2 ALLERGIES: No Known Drug Allergy The patient's Home Medications are listed below: CONTINUE TAKING THE FOLLOWING MEDICATIONS: Ibuprofen Oral Percocet Oral The source(s) of the original Home Medication information: patient The following Medications were given to the patient in the Emergency Department: Percocet [PO] PO 2 tab, administered: 10/08/2016 1:54:00 PM The following Medications were prescribed to the patient: Percocet 5 mg/325 mg: take 1-2 tablets orally every 6 hours as needed for pain. Dispense fifteen (15). No refill. Substitution is permissible. -- Sha Moody Dr.
--- NOTE | 2016-10-14 22:28 | ED MED RECONCILIATION SUMMARY ---
Patient: RUSSELL SEGOVIA Medication Reconciliation Report [facility] VisitID: [id number] [address] [place] [address] 35y, F Registration Date/Time: 10/08/2016 Weight: 74.8 kg Height/Length: 62 in. BMI: 30.2 ALLERGIES: No Known Drug Allergy The patient's Home Medications are listed below: CONTINUE TAKING THE FOLLOWING MEDICATIONS: Ibuprofen Oral Percocet Oral The source(s) of the original Home Medication information: patient The following Medications were given to the patient in the Emergency Department: Percocet [PO] PO 2 tab, administered: 10/08/2016 1:54:00 PM The following Medications were prescribed to the patient: Percocet 5 mg/325 mg: take 1-2 tablets orally every 6 hours as needed for pain. Dispense fifteen (15). No refill. Substitution is permissible. -- Sha Moody Dr.
--- NOTE | 2016-10-14 22:28 | ED MAR SUMMARY ---
..... Medication Administration Record [address] [place] [address] Patient: RUSSELL SEGOVIA Visit ID: [id number] 35y, F Weight: 74.8 kg Height/Length: 62 in BMI: 30.2 ALLERGIES: No Known Drug Allergy Given 13:54 10/08/2016 Starla Alonzo, Medication Administered: PERCOCET [PO] (OXYCODONE-ACETAMINOPHEN), Dose: 2 tab 5/325 mg Tablets PO. Medication Ordered: Percocet PO 10/650 mg (HIGH ALERT MEDICATION, NOW).
== END 2016-10-08 13:00 | disposition home or self-care (01) ==
LOC: ED SRH 12:59
DX: S83.91XA Sprain of unspecified site of right knee, initial encounter (principal); W18.39XA Other fall on same level, initial encounter; Y92.002 Bathroom of unspecified non-institutional (private) residence as the place of occurrence of the external cause; Y99.9 Unspecified external cause status; Y93.E1 Activity, personal bathing and showering

== ENCOUNTER 2016-10-27 10:54 | Emergency (ER) | payer OTHER ==
--- NOTE | 2016-10-27 12:34 | ED NURSING NOTES ---
Clinical Report - Nurses [facility] [place] [address] 10/27/2016 10:54 Patient: RUSSELL SEGOVIA TRIAGE Triage time 11:00. Acuity: LEVEL 4. Chief Complaint: LEFT LOWER EXTREMITY PAIN, SWELLING, NUMBNESS and TINGLING. Location of symptoms- (Wearing a kne immobilizer and using crutches.). Alert. No acute distress. SEPSIS SCREEN: Sepsis Screen: negative. Negative (no infection suspected/documented). --11:09 Marlena Dennis R.N. 11:00 10/27/16. BP: 171/106 taken on the left arm, while sitting. HR: 87. RR: 20. O2 saturation: 100%. Temp: 98.5 F. Pain level now: 05/01. --11:09 Marlena Dennis R.N. Weight: 72.5 kg stated. Height/Length: 62 inches Per Patient. BMI: 29.3. --11:05 Marlena Dennis R.N. Medications Ibuprofen Oral 600 mg, 3x a day. Percocet Oral (ran out of the percocet ). --11:07 Marlena Dennis R.N. Medication/allergy information source: the patient. --11:09 Marlena Dennis R.N. Allergies No Known Drug Allergy. --11:07 Marlena Dennis R.N. History Arrived by private vehicle. Historian: patient. Primary physician ([facility]). Injury occurred. Location of injuries: left knee. This occurred (early September, fell in the shower.). This did not occur last night. She has had swelling, trouble walking and weakness. 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 Seen within the last 30 days at this facility; seen for similar symptoms. (knee brace.). PAST MEDICAL HX: Tetanus status: up-to-date. Last normal menstrual period was 2 weeks ago. SOCIAL HX: Never smoker. Occasional alcohol use. No drug use. ABUSE ASSESSMENT: No report of abuse. FALL RISK ASSESSMENT: Fall risk assessment completed. No fall risk identified. NUTRITIONAL RISK ASSESSMENT: The nutritional risk assessment revealed no deficiencies. FUNCTIONAL ASSESSMENT: Functional assessment: no impairments noted. LEARNING NEEDS ASSESSMENT: The learning needs assessment revealed no barriers. SKIN INTEGRITY ASSESSMENT: Skin integrity risk assessment completed. No skin integrity risk identified. --11: Marlena Dennis R.N. PROBLEMS: Knee Injury. Sprain. Ovarian Cyst. --11: Marlena Dennis R.N. ADDITIONAL SURGERIES: Adenoidectomy. Appendectomy. Breast reduction . Dental Surgery. Hernia Repair. Knee Surgery. Oophorectomy. Sinus Surgery. Tonsillectomy. --11: Marlena Dennis R.N. Interventions ID band on patient. To room. --11: Marlena Dennis R.N. PHYSICAL ASSESSMENT Ambulatory to room. Patient gowned. GENERAL / NEURO / PSYCH: Oriented X 4. Alert. Appears in no acute distress. She has had pre-existing numbness of the left leg and foot with tingling. EXTREMITIES: Limited ROM present in the left knee. Left knee: tenderness and swelling. Limited ROM secondary to pain, weakness and swelling. SKIN: Skin intact. Skin is warm and dry. --11: Marlena Dennis R.N. NURSING PROGRESS NOTES Cold pack applied. Extremity elevated. Patient gowned. Two patient identifiers checked. Call light placed in reach. Side rails up x 1. Bed placed in lowest position. Brakes of bed on. Patient ready for evaluation. --11: Marlena Dennis R.N. 12:10/27/2016 Toradol (Ketorolac Tromethamine) IM 60 mg given. Given in the right gluteus joon. Allergies verified and confirmed 5 rights. --12: Marlena Dennis R.N. 12:10/27/2016 Dilaudid (HYDROmorphone HCl PF) IM 1 mg given. Given in the left gluteus joon. Allergies verified, confirmed 5 rights and sedative warning given to the patient. --12: Marlena Dennis R.N. DISPOSITION / DISCHARGE Departure time: 12:50 Oct 27 2016. Condition at departure: improved and stable. No learning barriers present. Work note given. Patient verbalized understanding. Written instructions provided in Scottish. No medication instructions. The patient was discharged by the physician. --13:02 Zakiya Mosqueda R.N. 13:01 10/27/16. BP: 161/91. HR: 65. RR: 18. O2 saturation: 100%. Pain level now 09/29. --13:02 Zakiya Mosqueda R.N. Locked/Released at 10/27/2016 13:03 by Zakiya Mosqueda R.N.
--- NOTE | 2016-10-27 12:34 | ED CLINICAL REPORT ---
Clinical Report - Physicians/Mid Levels [facility] [address] [place] [address] 10/27/2016 10:54 Patient: RUSSELL SEGOVIA Time Seen: 10:59. Arrived- By private vehicle. Historian- patient. HISTORY OF PRESENT ILLNESS Chief Complaint: LOWER EXTREMITY PAIN and SWELLING. This started about 4 weeks ago and is still present. Severity is described as being moderate. The quality is noted to be "pain". Modifying factors- worsened by standing and walking. Symptoms located in the area of the left knee. The patient has had swelling, but not had redness. She has had difficulty walking. No bladder dysfunction, bowel dysfunction, sensory loss or motor loss. Patient notes an injury. Mechanism of injury- (PT slipped in the shower, and knee slipped out from under her laterally. Pt has had pain over the medial aspect ever since.). Similar symptoms previously: None. Recent medical care: The patient was seen recently at this facility in the emergency department and a clinic. ( Pt has been seen multiple times in our ED for the same thing, as well as in the clinic. She states she is frustrated because her knee is not getting better, and the clinic did not get back to her to let her know her insurance denied to authorize payment for an MRI. She states that they want her to do 6 months of PT first, and pt does not believe this will help.). REVIEW OF SYSTEMS No cough, chest pain, difficulty breathing, fever or skin rash. No enlarged lymph nodes, neck pain, back pain, headache or blurred vision. No sore throat, abdominal pain, vomiting, diarrhea or black stools. No difficulty with urination or bloody stools. All systems otherwise negative, except as recorded above. PAST HISTORY Problems: Ovarian Cyst. LNMP - Last Normal Menstrual Period. Additional Surgeries: Adenoidectomy. Appendectomy. Breast reduction . Dental Surgery. Hernia Repair. Knee Surgery. Oophorectomy. Sinus Surgery. Tonsillectomy. Medications: Ibuprofen Oral 600 mg, 3x a day. Percocet Oral (ran out of the percocet ). Allergies: No Known Drug Allergy. SOCIAL HISTORY Never smoker. Occasional alcohol use. No drug use. ADDITIONAL NOTES The nursing notes have been reviewed. PHYSICAL EXAM Vital Signs: 10/27/2016 11:00 BP: 171/106. HR: 87. RR: 20. O2 saturation: 100%. Temp: 98.5 F. Pain level now: 05/01. Have been reviewed. Appearance: Alert. Oriented X3. (Pt appears emotionally upset, and is intermittently tearful, but is calm and cooperative.). Eyes: Pupils equal, round and reactive to light. Eyes normal inspection. ENT: Nose normal. Neck: Normal inspection. CVS: Pulses normal. Strong peripheral pulses. Respiratory: No respiratory distress. Back: ROM normal. Skin: Skin intact. Skin warm and dry. Normal skin color. Normal skin turgor. Extremities: Left knee: moderate tenderness and mild swelling located in the medial joint line and medial collateral ligament. Limited ROM secondary to pain (diminished flexion). Small joint effusion present. Neurovascular intact distally. No ligamentous laxity present. No erythema, laceration, abrasion, ecchymosis or puncture wound. No foreign body or deformity. Extremities otherwise negative. Neuro: Oriented X 3. No motor deficit. No sensory deficit. LABS, X-RAYS, AND EKG Pulse Oximetry: 10/27/2016 11:00 O2 saturation: 100%. (FIO2 - room air). Interpretation: normal. PROGRESS AND PROCEDURES Course of Care: PT was in the ED because her knee was not improving, and she did not feel she was getting the care she needed through the clinic. She had also run out of her Percocet. I was sympathetic to her plight, and did check the MRI schedule to see if they could fit her in; however, they had no openings. I did have the staff contact the [facility] and ask them to see their patient today, to come up with a plan for the management of the pt's sx. They did agree to see her this afternoon. Pt was given doses of Toradol and Dilaudid IM. Patient counseled in person regarding the patient's stable condition, diagnosis and need for follow-up. Concerns were addressed. Old medical records reviewed. Disposition: Discharged. Condition: stable. CLINICAL IMPRESSION Sprain of the left medial collateral ligament. INSTRUCTIONS Apply ice for 20 minutes three times a day as needed and until better. Don't apply ice directly to skin and don't use while asleep. Use crutches as needed. Wear knee immobilizer as needed (Avoid keeping your knee immobilized all the time, though, as this will cause other problems for your leg and knee.). Elevate affected areas above chest level as needed and until better. You may walk and bear weight as tolerated (only with the brace on). (Unfortunately, the MRI schedule was packed today. However, we did call the [facility], and they will see you at 4:00 this afternoon to come up with a treatment plan for your knee.). Warnings: Further evaluation is necessary. It is very important to follow up with a physician. GENERAL WARNINGS: Return or contact your physician immediately if your condition worsens or changes unexpectedly, if not improving as expected, or if other problems arise. Your Current Medications: CONTINUE TAKING THE FOLLOWING MEDICATIONS: Ibuprofen Oral : 600 mg 3x a day. Percocet Oral : ran out of the percocet. Understanding of the discharge instructions verbalized by patient. Follow-up with: [facility], , , [address], , [place], [id number] Follow up today as scheduled. (Electronically signed by Lidia Nieves MD 11/03/2016 19:42)
--- NOTE | 2016-10-27 12:34 | ED NURSING NOTES ---
Clinical Report - Nurses [facility] [place] [address] 10/27/2016 10:54 Patient: RUSSELL SEGOVIA TRIAGE Triage time 11:00. Acuity: LEVEL 4. Chief Complaint: LEFT LOWER EXTREMITY PAIN, SWELLING, NUMBNESS and TINGLING. Location of symptoms- (Wearing a kne immobilizer and using crutches.). Alert. No acute distress. SEPSIS SCREEN: Sepsis Screen: negative. Negative (no infection suspected/documented). --11:09 Marlena Dennis R.N. 11:00 10/27/16. BP: 171/106 taken on the left arm, while sitting. HR: 87. RR: 20. O2 saturation: 100%. Temp: 98.5 F. Pain level now: 05/01. --11:09 Marlena Dennis R.N. Weight: 72.5 kg stated. Height/Length: 62 inches Per Patient. BMI: 29.3. --11:05 Marlena Dennis R.N. Medications Ibuprofen Oral 600 mg, 3x a day. Percocet Oral (ran out of the percocet ). --11:07 Marlena Dennis R.N. Medication/allergy information source: the patient. --11:09 Marlena Dennis R.N. Allergies No Known Drug Allergy. --11:07 Marlena Dennis R.N. History Arrived by private vehicle. Historian: patient. Primary physician ([facility]). Injury occurred. Location of injuries: left knee. This occurred (early September, fell in the shower.). This did not occur last night. She has had swelling, trouble walking and weakness. 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 Seen within the last 30 days at this facility; seen for similar symptoms. (knee brace.). PAST MEDICAL HX: Tetanus status: up-to-date. Last normal menstrual period was 2 weeks ago. SOCIAL HX: Never smoker. Occasional alcohol use. No drug use. ABUSE ASSESSMENT: No report of abuse. FALL RISK ASSESSMENT: Fall risk assessment completed. No fall risk identified. NUTRITIONAL RISK ASSESSMENT: The nutritional risk assessment revealed no deficiencies. FUNCTIONAL ASSESSMENT: Functional assessment: no impairments noted. LEARNING NEEDS ASSESSMENT: The learning needs assessment revealed no barriers. SKIN INTEGRITY ASSESSMENT: Skin integrity risk assessment completed. No skin integrity risk identified. --11: Marlena Dennis R.N. PROBLEMS: Knee Injury. Sprain. Ovarian Cyst. --11: Marlena Dennis R.N. ADDITIONAL SURGERIES: Adenoidectomy. Appendectomy. Breast reduction . Dental Surgery. Hernia Repair. Knee Surgery. Oophorectomy. Sinus Surgery. Tonsillectomy. --11: Marlena Dennis R.N. Interventions ID band on patient. To room. --11: Marlena Dennis R.N. PHYSICAL ASSESSMENT Ambulatory to room. Patient gowned. GENERAL / NEURO / PSYCH: Oriented X 4. Alert. Appears in no acute distress. She has had pre-existing numbness of the left leg and foot with tingling. EXTREMITIES: Limited ROM present in the left knee. Left knee: tenderness and swelling. Limited ROM secondary to pain, weakness and swelling. SKIN: Skin intact. Skin is warm and dry. --11: Marlena Dennis R.N. NURSING PROGRESS NOTES Cold pack applied. Extremity elevated. Patient gowned. Two patient identifiers checked. Call light placed in reach. Side rails up x 1. Bed placed in lowest position. Brakes of bed on. Patient ready for evaluation. --11: Marlena Dennis R.N. 12:10/27/2016 Toradol (Ketorolac Tromethamine) IM 60 mg given. Given in the right gluteus joon. Allergies verified and confirmed 5 rights. --12: Marlena Dennis R.N. 12:10/27/2016 Dilaudid (HYDROmorphone HCl PF) IM 1 mg given. Given in the left gluteus joon. Allergies verified, confirmed 5 rights and sedative warning given to the patient. --12: Marlena Dennis R.N. DISPOSITION / DISCHARGE Departure time: 12:50 Oct 27 2016. Condition at departure: improved and stable. No learning barriers present. Work note given. Patient verbalized understanding. Written instructions provided in Mosotho. No medication instructions. The patient was discharged by the physician. --13:02 Zakiya Mosqueda R.N. 13:01 10/27/16. BP: 161/91. HR: 65. RR: 18. O2 saturation: 100%. Pain level now 09/29. --13:02 Zakiya Mosqueda R.N. Locked/Released at 10/27/2016 13:03 by Zakiya Mosqueda R.N.
--- NOTE | 2016-10-27 12:34 | ED CLINICAL REPORT ---
Clinical Report - Physicians/Mid Levels [facility] [address] [place] [address] 10/27/2016 10:54 Patient: RUSSELL SEGOVIA Time Seen: 10:59. Arrived- By private vehicle. Historian- patient. HISTORY OF PRESENT ILLNESS Chief Complaint: LOWER EXTREMITY PAIN and SWELLING. This started about 4 weeks ago and is still present. Severity is described as being moderate. The quality is noted to be "pain". Modifying factors- worsened by standing and walking. Symptoms located in the area of the left knee. The patient has had swelling, but not had redness. She has had difficulty walking. No bladder dysfunction, bowel dysfunction, sensory loss or motor loss. Patient notes an injury. Mechanism of injury- (PT slipped in the shower, and knee slipped out from under her laterally. Pt has had pain over the medial aspect ever since.). Similar symptoms previously: None. Recent medical care: The patient was seen recently at this facility in the emergency department and a clinic. ( Pt has been seen multiple times in our ED for the same thing, as well as in the clinic. She states she is frustrated because her knee is not getting better, and the clinic did not get back to her to let her know her insurance denied to authorize payment for an MRI. She states that they want her to do 6 months of PT first, and pt does not believe this will help.). REVIEW OF SYSTEMS No cough, chest pain, difficulty breathing, fever or skin rash. No enlarged lymph nodes, neck pain, back pain, headache or blurred vision. No sore throat, abdominal pain, vomiting, diarrhea or black stools. No difficulty with urination or bloody stools. All systems otherwise negative, except as recorded above. PAST HISTORY Problems: Ovarian Cyst. LNMP - Last Normal Menstrual Period. Additional Surgeries: Adenoidectomy. Appendectomy. Breast reduction . Dental Surgery. Hernia Repair. Knee Surgery. Oophorectomy. Sinus Surgery. Tonsillectomy. Medications: Ibuprofen Oral 600 mg, 3x a day. Percocet Oral (ran out of the percocet ). Allergies: No Known Drug Allergy. SOCIAL HISTORY Never smoker. Occasional alcohol use. No drug use. ADDITIONAL NOTES The nursing notes have been reviewed. PHYSICAL EXAM Vital Signs: 10/27/2016 11:00 BP: 171/106. HR: 87. RR: 20. O2 saturation: 100%. Temp: 98.5 F. Pain level now: 05/01. Have been reviewed. Appearance: Alert. Oriented X3. (Pt appears emotionally upset, and is intermittently tearful, but is calm and cooperative.). Eyes: Pupils equal, round and reactive to light. Eyes normal inspection. ENT: Nose normal. Neck: Normal inspection. CVS: Pulses normal. Strong peripheral pulses. Respiratory: No respiratory distress. Back: ROM normal. Skin: Skin intact. Skin warm and dry. Normal skin color. Normal skin turgor. Extremities: Left knee: moderate tenderness and mild swelling located in the medial joint line and medial collateral ligament. Limited ROM secondary to pain (diminished flexion). Small joint effusion present. Neurovascular intact distally. No ligamentous laxity present. No erythema, laceration, abrasion, ecchymosis or puncture wound. No foreign body or deformity. Extremities otherwise negative. Neuro: Oriented X 3. No motor deficit. No sensory deficit. LABS, X-RAYS, AND EKG Pulse Oximetry: 10/27/2016 11:00 O2 saturation: 100%. (FIO2 - room air). Interpretation: normal. PROGRESS AND PROCEDURES Course of Care: PT was in the ED because her knee was not improving, and she did not feel she was getting the care she needed through the clinic. She had also run out of her Percocet. I was sympathetic to her plight, and did check the MRI schedule to see if they could fit her in; however, they had no openings. I did have the staff contact the [facility] and ask them to see their patient today, to come up with a plan for the management of the pt's sx. They did agree to see her this afternoon. Pt was given doses of Toradol and Dilaudid IM. Patient counseled in person regarding the patient's stable condition, diagnosis and need for follow-up. Concerns were addressed. Old medical records reviewed. Disposition: Discharged. Condition: stable. CLINICAL IMPRESSION Sprain of the left medial collateral ligament. INSTRUCTIONS Apply ice for 20 minutes three times a day as needed and until better. Don't apply ice directly to skin and don't use while asleep. Use crutches as needed. Wear knee immobilizer as needed (Avoid keeping your knee immobilized all the time, though, as this will cause other problems for your leg and knee.). Elevate affected areas above chest level as needed and until better. You may walk and bear weight as tolerated (only with the brace on). (Unfortunately, the MRI schedule was packed today. However, we did call the [facility], and they will see you at 4:00 this afternoon to come up with a treatment plan for your knee.). Warnings: Further evaluation is necessary. It is very important to follow up with a physician. GENERAL WARNINGS: Return or contact your physician immediately if your condition worsens or changes unexpectedly, if not improving as expected, or if other problems arise. Your Current Medications: CONTINUE TAKING THE FOLLOWING MEDICATIONS: Ibuprofen Oral : 600 mg 3x a day. Percocet Oral : ran out of the percocet. Understanding of the discharge instructions verbalized by patient. Follow-up with: [facility], , , [address], , [place], [id number] Follow up today as scheduled. (Electronically signed by Lidia Nieves MD 11/03/2016 19:42)
--- NOTE | 2016-10-27 12:35 | ED ORDER SUMMARY ---
..... Patient: RUSSELL SEGOVIA OrderSheet [facility] VisitID: [id number] [address] [place] [address] 35y, F Registration Date/Time: 10/27/2016 ORDER SHEET Weight: 72.5 kg (stated) Allergies: No Known Drug Allergy GENERAL ORDERS: MEDICATION ORDERS: Toradol IM 60 mg (NOW) (11:56 10/27/2016 Edil GARBER) (Ack 11:59 SRoberts R.N.) (12:09 SRoberts R.N.) Dilaudid IM 1 mg (HIGH ALERT MEDICATION, NOW) (11:57 10/27/2016 Edil GARBER) (Ack 11:59 SRoberts R.N.) (12:09 SRoberts R.N.) IV FLUIDS: ORDER SHEET NOTES: [Electronically signed by Zakiya Mosqueda R.N. (13:03 10/27/2016)] [Electronically signed by Lidia Nieves MD (19:42 11/03/2016)] [Electronically locked/signed by Zakiya Mosqueda R.N. (13:03 10/27/2016)]
--- NOTE | 2016-10-27 12:35 | ED ORDER SUMMARY ---
..... Patient: RUSSELL SEGOVIA OrderSheet [facility] VisitID: [id number] [address] [place] [address] 35y, F Registration Date/Time: 10/27/2016 ORDER SHEET Weight: 72.5 kg (stated) Allergies: No Known Drug Allergy GENERAL ORDERS: MEDICATION ORDERS: Toradol IM 60 mg (NOW) (11:56 10/27/2016 Edil GARBER) (Ack 11:59 SRoberts R.N.) (12:09 SRoberts R.N.) Dilaudid IM 1 mg (HIGH ALERT MEDICATION, NOW) (11:57 10/27/2016 Edil GARBER) (Ack 11:59 SRoberts R.N.) (12:09 SRoberts R.N.) IV FLUIDS: ORDER SHEET NOTES: [Electronically signed by Zakiya Mosqueda R.N. (13:03 10/27/2016)] [Electronically signed by Lidia Nieves MD (19:42 11/03/2016)] [Electronically locked/signed by Zakiya Mosqueda R.N. (13:03 10/27/2016)]
--- NOTE | 2016-11-03 19:43 | ED DISCHARGE INSTRUCTIONS ---
Patient: RUSSELL SEGOVIA General Instructions [facility] VisitID: [id number] [address], [place] [address] 35y, F Registration Date/Time: 10/27/2016 Sprain of the left medial collateral ligament. INSTRUCTIONS Apply ice for 20 minutes three times a day as needed and until better. Don't apply ice directly to skin and don't use while asleep. Use crutches as needed. Wear knee immobilizer as needed (Avoid keeping your knee immobilized all the time, though, as this will cause other problems for your leg and knee.). Elevate affected areas above chest level as needed and until better. You may walk and bear weight as tolerated (only with the brace on). (Unfortunately, the MRI schedule was packed today. However, we did call the [facility], and they will see you at 4:00 this afternoon to come up with a treatment plan for your knee.). Warnings: Further evaluation is necessary. It is very important to follow up with a physician. GENERAL WARNINGS: Return or contact your physician immediately if your condition worsens or changes unexpectedly, if not improving as expected, or if other problems arise. Your Current Medications: CONTINUE TAKING THE FOLLOWING MEDICATIONS: Ibuprofen Oral : 600 mg 3x a day. Percocet Oral : ran out of the percocet. Understanding of the discharge instructions verbalized by patient. Follow-up with: [facility], , , [address], , [place], [id number] Follow up today as scheduled. ADDITIONAL INFORMATION Knee Sprain, Collateral Ligaments The knee is a hinge joint supported by four strong ligaments. The two ligaments inside the knee (cruciate ligaments) protect this joint from excess forward and backward movement. The ligaments on the outside of the joint (collateral ligaments) prevent attv-go-zvic motion. The medial collateral ligament (MCL) is located on the inner side of the joint; and the lateral collateral ligament (LCL) is on the outer side of the joint. You have sprained one or both collateral ligaments. A sprain is a tearing of a ligament. The tear may be partial or complete. Diagnosis is made by physical exam. In the case of an acute injury, the knee may be too swollen or painful to examine fully. A more accurate exam can be performed after the initial swelling goes down. Symptoms of a knee sprain include immediate knee swelling, pain, and difficulty walking.Initial treatment includes resting the joint, splinting to reduce movement of the joint, use of ice to reduce swelling and pain. Non-steroidal anti-inflammatory drugs (NSAIDs), such as ibuprofen, may be prescribed. Most sprains will heal in one to four weeks.A severe injury can take three to four months to heal and requires rehabilitation exercises. Surgery is usually not required for sprains involving only the collateral ligaments. Home care The following guidelines will help you care for your injury at home: Stay off the injured leg as much as possible until you can walk on it without pain. If you have a lot of pain while walking, crutches, or a walker may be prescribed. (These can be rented or purchased at many pharmacies and surgical or orthopedic supply stores.) Follow your doctor's advice regarding when to begin bearing weight on that leg. If you were given a vecn-nzb-eafr closure knee brace, you can remove this to bathe, but leave it in place when walking, sitting, or lying down (unless told otherwise). Apply an ice pack (ice cubes in a plastic bag, wrapped in a towel) over the injured area for 20 minutes every 12 hours the first day. If a jdtq-mxl-hccj closure knee brace was applied, you can open this to apply the ice pack directly to the knee. Continue with ice packs 34 times a day for the next two days, then as needed for the relief of pain and swelling. You may use acetaminophen or ibuprofen to control pain, unless another pain medicine was prescribed. If you have chronic liver or kidney disease or ever had a stomach ulcer or GI bleeding, talk with your doctor before using these medicines. Follow-up care Follow up with the referral doctor, or as advised by our staff. Any X-rays you had today dont show any broken bones, breaks, or fractures. Sometimes fractures dont show up on the first X-ray. Bruises and sprains can sometimes hurt as much as a fracture. These injuries can take time to heal completely. If your symptoms dont improve or they get worse, talk with your doctor. You may need a repeat X-ray. When to seek medical care Get prompt medical attention if any of the following occur: Pain or swelling worsens Shortness of breath or chest pain Swelling or redness or pain of the calf or thigh You have been given the following additional information: Knee Sprain: Collateral Ligaments You may walk and bear weight as tolerated (only with the brace on). (Electronically signed by Lidia Nieves MD 11/03/2016 19:42)
--- NOTE | 2016-11-03 19:43 | ED MED RECONCILIATION SUMMARY ---
Patient: RUSSELL SEGOVIA Medication Reconciliation Report [facility] VisitID: [id number] [address] [place] [address] 35y, F Registration Date/Time: 10/27/2016 Weight: 72.5 kg Height/Length: 62 in. BMI: 29.3 ALLERGIES: No Known Drug Allergy The patient's Home Medications are listed below: CONTINUE TAKING THE FOLLOWING MEDICATIONS: Ibuprofen Oral 600 mg, 3x a day Percocet Oral, ran out of the percocet The source(s) of the original Home Medication information: patient The following Medications were given to the patient in the Emergency Department: Toradol [IM] IM 60 mg, administered: 10/27/2016 12:09:00 PM Dilaudid [IM] IM 1 mg, administered: 10/27/2016 12:09:00 PM The following Medications were prescribed to the patient: None.
--- NOTE | 2016-11-03 19:43 | ED MED RECONCILIATION SUMMARY ---
Patient: RUSSELL SEGOVIA Medication Reconciliation Report [facility] VisitID: [id number] [address] [place] [address] 35y, F Registration Date/Time: 10/27/2016 Weight: 72.5 kg Height/Length: 62 in. BMI: 29.3 ALLERGIES: No Known Drug Allergy The patient's Home Medications are listed below: CONTINUE TAKING THE FOLLOWING MEDICATIONS: Ibuprofen Oral 600 mg, 3x a day Percocet Oral, ran out of the percocet The source(s) of the original Home Medication information: patient The following Medications were given to the patient in the Emergency Department: Toradol [IM] IM 60 mg, administered: 10/27/2016 12:09:00 PM Dilaudid [IM] IM 1 mg, administered: 10/27/2016 12:09:00 PM The following Medications were prescribed to the patient: None.
--- NOTE | 2016-11-03 19:43 | ED MAR SUMMARY ---
..... Medication Administration Record [facility] [address] [place] [address] Patient: RUSSELL SEGOVIA Visit ID: [id number] 35y, F Weight: 72.5 kg Height/Length: 62 in BMI: 29.3 ALLERGIES: No Known Drug Allergy Given 12:10/27/2016 Marlena Dennis R.N. Medication Administered: TORADOL [IM] (KETOROLAC TROMETHAMINE), Dose: 60 mg IM. Medication Ordered: Toradol IM 60 mg (NOW). Given 12:10/27/2016 Marlena Dennis R.N. Medication Administered: DILAUDID [IM] (HYDROMORPHONE HCL PF), Dose: 1 mg IM. Medication Ordered: Dilaudid IM 1 mg (HIGH ALERT MEDICATION, NOW).
--- NOTE | 2016-11-03 19:43 | ED MAR SUMMARY ---
..... Medication Administration Record [facility] [address] [place] [address] Patient: RUSSELL SEGOVIA Visit ID: [id number] 35y, F Weight: 72.5 kg Height/Length: 62 in BMI: 29.3 ALLERGIES: No Known Drug Allergy Given 12:10/27/2016 Marlena Dennis R.N. Medication Administered: TORADOL [IM] (KETOROLAC TROMETHAMINE), Dose: 60 mg IM. Medication Ordered: Toradol IM 60 mg (NOW). Given 12:10/27/2016 Marlena Dennis R.N. Medication Administered: DILAUDID [IM] (HYDROMORPHONE HCL PF), Dose: 1 mg IM. Medication Ordered: Dilaudid IM 1 mg (HIGH ALERT MEDICATION, NOW).
--- NOTE | 2016-11-03 19:43 | ED DISCHARGE INSTRUCTIONS ---
Patient: RUSSELL SEGOVIA General Instructions [facility] VisitID: [id number] [address], [place] [address] 35y, F Registration Date/Time: 10/27/2016 Sprain of the left medial collateral ligament. INSTRUCTIONS Apply ice for 20 minutes three times a day as needed and until better. Don't apply ice directly to skin and don't use while asleep. Use crutches as needed. Wear knee immobilizer as needed (Avoid keeping your knee immobilized all the time, though, as this will cause other problems for your leg and knee.). Elevate affected areas above chest level as needed and until better. You may walk and bear weight as tolerated (only with the brace on). (Unfortunately, the MRI schedule was packed today. However, we did call the [facility], and they will see you at 4:00 this afternoon to come up with a treatment plan for your knee.). Warnings: Further evaluation is necessary. It is very important to follow up with a physician. GENERAL WARNINGS: Return or contact your physician immediately if your condition worsens or changes unexpectedly, if not improving as expected, or if other problems arise. Your Current Medications: CONTINUE TAKING THE FOLLOWING MEDICATIONS: Ibuprofen Oral : 600 mg 3x a day. Percocet Oral : ran out of the percocet. Understanding of the discharge instructions verbalized by patient. Follow-up with: [facility], , , [address], , [place], [address] Follow up today as scheduled. ADDITIONAL INFORMATION Knee Sprain, Collateral Ligaments The knee is a hinge joint supported by four strong ligaments. The two ligaments inside the knee (cruciate ligaments) protect this joint from excess forward and backward movement. The ligaments on the outside of the joint (collateral ligaments) prevent zzxw-wk-azvs motion. The medial collateral ligament (MCL) is located on the inner side of the joint; and the lateral collateral ligament (LCL) is on the outer side of the joint. You have sprained one or both collateral ligaments. A sprain is a tearing of a ligament. The tear may be partial or complete. Diagnosis is made by physical exam. In the case of an acute injury, the knee may be too swollen or painful to examine fully. A more accurate exam can be performed after the initial swelling goes down. Symptoms of a knee sprain include immediate knee swelling, pain, and difficulty walking.Initial treatment includes resting the joint, splinting to reduce movement of the joint, use of ice to reduce swelling and pain. Non-steroidal anti-inflammatory drugs (NSAIDs), such as ibuprofen, may be prescribed. Most sprains will heal in one to four weeks.A severe injury can take three to four months to heal and requires rehabilitation exercises. Surgery is usually not required for sprains involving only the collateral ligaments. Home care The following guidelines will help you care for your injury at home: Stay off the injured leg as much as possible until you can walk on it without pain. If you have a lot of pain while walking, crutches, or a walker may be prescribed. (These can be rented or purchased at many pharmacies and surgical or orthopedic supply stores.) Follow your doctor's advice regarding when to begin bearing weight on that leg. If you were given a zzzr-svd-rlhh closure knee brace, you can remove this to bathe, but leave it in place when walking, sitting, or lying down (unless told otherwise). Apply an ice pack (ice cubes in a plastic bag, wrapped in a towel) over the injured area for 20 minutes every 12 hours the first day. If a txwv-zke-epei closure knee brace was applied, you can open this to apply the ice pack directly to the knee. Continue with ice packs 34 times a day for the next two days, then as needed for the relief of pain and swelling. You may use acetaminophen or ibuprofen to control pain, unless another pain medicine was prescribed. If you have chronic liver or kidney disease or ever had a stomach ulcer or GI bleeding, talk with your doctor before using these medicines. Follow-up care Follow up with the referral doctor, or as advised by our staff. Any X-rays you had today dont show any broken bones, breaks, or fractures. Sometimes fractures dont show up on the first X-ray. Bruises and sprains can sometimes hurt as much as a fracture. These injuries can take time to heal completely. If your symptoms dont improve or they get worse, talk with your doctor. You may need a repeat X-ray. When to seek medical care Get prompt medical attention if any of the following occur: Pain or swelling worsens Shortness of breath or chest pain Swelling or redness or pain of the calf or thigh You have been given the following additional information: Knee Sprain: Collateral Ligaments You may walk and bear weight as tolerated (only with the brace on). (Electronically signed by Lidia Nieves MD 11/03/2016 19:42)
== END 2016-10-27 12:50 | disposition home or self-care (01) ==
LOC: ED SRH 10:54
DX: S83.412A Sprain of medial collateral ligament of left knee, initial encounter (principal); W18.2XXA Fall in (into) shower or empty bathtub, initial encounter; Y93.89 Activity, other specified; Y92.012 Bathroom of single-family (private) house as the place of occurrence of the external cause; Y99.9 Unspecified external cause status

== ENCOUNTER 2016-12-21 20:24 | Emergency (ER) | payer OTHER ==
--- NOTE | 2016-12-21 22:22 | ED CLINICAL REPORT ---
Clinical Report - Physicians/Mid Levels [facility] [address] [place] [address] 12/21/2016 20:24 Patient: RUSSELL SEGOVIA Time Seen: 21:12. Arrived- By private vehicle. Historian- patient. HISTORY OF PRESENT ILLNESS Chief Complaint: LESION and (headache). This started today and is still present. It is described as painful. It has been located on the scalp. A possible cause has been identified (Pt states she noticed the painful, swollen area on her posterior scalp, and following this, she developed a bad headache. Pt was not feeling ill prior to this.). Similar symptoms previously: None. Recent medical care: Not recently seen/assessed. REVIEW OF SYSTEMS No fever, chills, sore throat, cough or difficulty breathing. No hoarseness, lump in throat, enlarged lymph nodes, eye irritation or chest pain. No abdominal pain, nausea, diarrhea, difficulty with urination or joint pain. No vomiting. The patient has had a headache. All systems otherwise negative, except as recorded above. PAST HISTORY Problems: Ovarian Cyst. LNMP - Last Normal Menstrual Period. Additional Surgeries: Adenoidectomy. Appendectomy. Breast reduction . Dental Surgery. Hernia Repair. Knee Surgery. Oophorectomy. Sinus Surgery. Tonsillectomy. Medications: Ibuprofen Oral 600 mg, 3x a day. Percocet Oral (ran out of the percocet ). Allergies: No Known Drug Allergy. SOCIAL HISTORY Never smoker. Occasional alcohol use. No drug use. ADDITIONAL NOTES The nursing notes have been reviewed. PHYSICAL EXAM Vital Signs: 12/21/2016 20:38 BP: 175/85. HR: 89. RR: 18. O2 saturation: 100%. Temp: 97.8 F. Pain level now: 05/01. Have been reviewed. Appearance: Alert. Oriented X3. No acute distress. (Pt appears moderately uncomfortable.). Eyes: Pupils equal, round and reactive to light. Conjunctivae and eyelids normal. ENT: Nose normal. Neck: Neck supple. Respiratory: No respiratory distress. Skin: Skin warm and dry. (PT has a tender area of tissue elevation on her posterior scalp. No induration or fluctuance is noted. Mild skin maceration with mild purulent drainage is noted at the apex. No further drainage is able to be expressed with digital pressure.). Extremities: Normal external inspection. Neuro: Oriented X 3. No motor deficit. No sensory deficit. LABS, X-RAYS, AND EKG Pulse Oximetry: 12/21/2016 20:38 O2 saturation: 100%. (FIO2 - room air). Interpretation: normal. PROGRESS AND PROCEDURES Course of Care: Pt was treated symptomatically with IV fluids, Toradol, Phenergan, and Dilaudid, and was given a dose of Bactrim for the mild infection in her scalp. No evidence of underlying abscess was noted. Patient and family counseled in person regarding the patient's stable condition, diagnosis and need for follow-up. Concerns were addressed. Old medical records reviewed. Disposition: Discharged. Condition: stable and improved. CLINICAL IMPRESSION Acute migraine and tension headache. 2. Infected skin lesion. INSTRUCTIONS Warnings: SEDATIVE MEDICATION: You were given sedative medication during your visit. Do not drive or operate dangerous machinery for 6 hours. GENERAL WARNINGS: Return or contact your physician immediately if your condition worsens or changes unexpectedly, if not improving as expected, or if other problems arise. Your Current Medications: CONTINUE TAKING THE FOLLOWING MEDICATIONS: Ibuprofen Oral : 600 mg 3x a day. Percocet Oral : ran out of the percocet. Prescription Medications: Hydrocodone/APAP 5mg / 325mg: take 1 orally every 6 hours as needed for pain. Dispense five (5). No refill. Zofran (orally disintegrating tablets) 4 mg: take 1 orally every 6 hours as needed for nausea. Dispense ten (10). No refill. Substitution is permissible. Bactrim DS 800 mg / 160 mg: take 1 tablet orally every 12 hours for 6 days. No refill. Substitution is permissible. Ibuprofen 800 mg tablets: take 1 tablet orally every 8 hours as needed for pain. Dispense ten (10). No refill. Follow-up: Follow up with your doctor in seven days if not better. Reason for referral: skin lesion on scalp. Understanding of the discharge instructions verbalized by patient. (Electronically signed by Lidia Nieves MD 01/03/2017 16:05)
--- NOTE | 2016-12-21 22:22 | ED ORDER SUMMARY ---
..... Patient: RUSSELL SEGOVIA OrderSheet [facility] VisitID: [id number] [place] [address] 36y, F Registration Date/Time: 12/21/2016 ORDER SHEET Weight: 72.1 kg (stated) Allergies: No Known Drug Allergy GENERAL ORDERS: MEDICATION ORDERS: Phenergan IV 25 mg (HIGH ALERT MEDICATION, NOW) (21:57 12/21/2016 Edil GARBER) (Ack 21:58 JSanders R.N.) (22:46 JSanders R.N.) Bactrim DS PO (Tablet 800-160 mg) 1 tab (after IV meds and fluids) (21:57 12/21/2016 Edil GARBER) (Ack 21:58 JSanders R.N.) (23:28 JSanders R.N.) IV FLUIDS: IV NS : initial bolus 1000 mL (1000 mL/hr), then none - (NOW) (21:57 12/21/2016 Edil GARBER) (Ack 21:58 JSanders R.N.) (22:45 JSanders R.N.) Toradol IV 30 mg (NOW) (21:57 12/21/2016 Edil GARBER) (Ack 21:58 JSanders R.N.) (22:46 JSanders R.N.) Dilaudid IV 0.5 mg (HIGH ALERT MEDICATION, NOW) (21:57 12/21/2016 Edil GABRER) (Ack 21:58 JSanders R.N.) (22:47 JSanders R.N.) Dilaudid IV 1 mg (HIGH ALERT MEDICATION, NOW) (23:17 12/21/2016 Edil GARBER) (23:25 JSanders R.N.) ORDER SHEET NOTES: [Electronically signed by Rubi Burgess R.N. (00:06 12/22/2016)] [Electronically signed by Lidia Nieves MD (16:05 01/03/2017)] [Electronically locked/signed by Rubi Burgess R.N. (00:06 12/22/2016)]
--- NOTE | 2016-12-21 22:22 | ED NURSING NOTES ---
Clinical Report - Nurses Located Within [facility] [address] [place] [address] 12/21/2016 20:24 Patient: RUSSELL SEGOVIA TRIAGE Triage time 20:38 Dec 21 2016. Acuity: LEVEL 4. Chief Complaint: (Patient has a bump on back of head, giving her a EWING with nausea). 20:43 12/21/16. SEPSIS SCREEN: Sepsis Screen. Negative (no infection suspected/documented). PARTH COMA SCORE: Parth Coma Scale: 15- eyes open spontaneously (4); best verbal response- oriented x 4 (5); best motor response- obeys commands (6). --20:43 Rubi Burgess R.N. 20:38 12/21/16. BP: 175/85 (regular adult cuff) taken on the left arm, while sitting. HR: 89. RR: 18. O2 saturation: 100% on room air. Temp: 97.8 F (oral). Pain level now: 10/10. --20:43 Rubi Burgess R.N. Weight: 72.1 kg stated. Height/Length: 63 inches Per Patient. BMI: 28.2. --20:41 Rubi Burgess R.N. Medications Ibuprofen Oral 600 mg, 3x a day. Percocet Oral (ran out of the percocet ). --20:39 Rubi Burgess R.N. Allergies No Known Drug Allergy. --20:39 Rubi Burgess R.N. History Arrived by private vehicle. Historian: patient and family. Accompanied by family. This started just prior to arrival. ( Nausea from EWING). Treatment [employer]: None. PAST MEDICAL HX: Last normal menstrual period was 3 weeks ago. SOCIAL HX: Never smoker. Occasional alcohol use. No drug use. No infectious disease exposure. ABUSE ASSESSMENT: No report of abuse. --20:43 Rubi Burgess R.N. PROBLEMS: Knee Injury. Sprain. Ovarian Cyst. --20:40 Rubi Burgess R.N. ADDITIONAL SURGERIES: Adenoidectomy. Appendectomy. Breast reduction . Dental Surgery. Hernia Repair. Knee Surgery. Oophorectomy. Sinus Surgery. Tonsillectomy. --20:40 Rubi Burgess R.N. Interventions ID band on patient. To treatment room. --20:43 Rubi Burgess R.N. PHYSICAL ASSESSMENT 20:45 12/21/16. Ambulatory to room. GENERAL / NEURO / PSYCH: Alert. Oriented X 4. Appears in no acute distress. Appears in pain. HEENT: Pupils equal, round and reactive to light. No facial asymmetry noted. Mucous membranes are pink. RESPIRATORY: Respirations not labored. Chest nontender. Breath sounds within normal limits. CVS: Normal sinus rhythm noted. Capillary refill less than 2 seconds. Pulses within normal limits. GI / : Abdomen soft and nontender and normal bowel sounds. SKIN: Skin intact. Skin is warm. Normal skin turgor. --20:45 Rubi Burgess R.N. 20:47 12/21/16. ( Patient has raised bump on the back of her head, under her hair, just noticed area today). --20:47 Rubi Burgess R.N. NURSING PROGRESS NOTES 20:47 12/21/16. The plan of care for this patient has been created. Head of bed elevated. Reassurance given. Two patient identifiers checked. Call light placed in reach. Side rails up x 1. Bed placed in lowest position. Brakes of bed on. Patient ready for evaluation- chart flagged and PA notified. --20:47 Rubi Burgess R.N. late entry - 22:00 12/21/16. ( Patient doing well, Has EWING still, lights off for patient, given blanket and extra pillow, and son no longer at bedside). --22:48 Rubi Burgess R.N. 22:15 12/21/2016 Site #1 started via IV in the right antecubital space with an 20g angiocath, with aseptic technique and good blood return; two attempts. Blood drawn: rainbow set. Labeled in the presence of the patient and sent to the lab. Saline lock flushed with 10 mL saline. --22:45 Rubi Burgess R.N. 22:20 12/21/2016 Started bag #1 1000 mL IV Fluids IV NS (Saline); bolus of 1000 mL over 1 hour(s) via site #1 via dial-a-flow. Allergies verified and confirmed 5 rights. IV patency established. IV site checked: no pain, redness, or swelling. IV flushed thoroughly pre- and post-medication administration. --22:45 Rubi Burgess R.N. 22:24 12/21/2016 Toradol IVP 30 mg given over 1 minute(s) via site #1. Allergies verified and confirmed 5 rights. IV patency established. IV site checked: no pain, redness, or swelling. IV flushed thoroughly pre- and post-medication administration. IVP given by RN. --22:46 Rubi Burgess R.N. 22:26 12/21/2016 Dilaudid (HYDROmorphone HCl PF) IVP 0.5 mg given over 1 minute(s) via site #1. Allergies verified, confirmed 5 rights and sedative warning given to the patient. IV patency established. IV site checked: no pain, redness, or swelling. IV flushed thoroughly pre- and post-medication administration. IVP given by RN. --22:47 Rubi Burgess R.N. 22:30 12/21/2016 PHENERGAN (Promethazine HCl) IVP 25 mg given over 2 minute(s) via site #1. Allergies verified and confirmed 5 rights. IV patency established. IV site checked: no pain, redness, or swelling. IV flushed thoroughly pre- and post-medication administration. IVP given by RN. --22:46 Rubi Burgess R.N. 21:30 12/21/16. BP: 152/90. HR: 90. RR: 18. O2 saturation: 100% on room air. Pain level now: 05/01. --22:49 Rubi Burgess R.N. 22:59 12/21/16. BP: 162/95 (regular adult cuff) taken on the left arm. HR: 95. RR: 16. O2 saturation: 99% on room air. Pain level now: 05/01. --22:59 Rubi Burgess R.N. 23:12/21/2016 PHENERGAN IVP Response: no adverse reaction pain is improving. Symptoms have improved the patient feels better. --23: Rubi Burgess R.N. 23:25 12/21/2016 Dilaudid (HYDROmorphone HCl PF) IVP 1 mg given over 1 minute(s) via site #1. Allergies verified, confirmed 5 rights and sedative warning given to the patient. IV patency established. IV site checked: no pain, redness, or swelling. IV flushed thoroughly pre- and post-medication administration. IVP given by RN. --23:25 Rubi Burgess R.N. 23:25 12/21/2016 IV Fluids IV NS Discontinued: bag #1 completed. Total amount infused: 1000 mL. IV patency established. IV site checked: no pain, redness, or swelling. IV flushed thoroughly. --23:25 Rubi Burgess R.N. 23:28 12/21/2016 Bactrim DS (Sulfamethoxazole-TMP DS) PO Tablets 1 tab given. Allergies verified and confirmed 5 rights. --23:28 Rubi Burgess R.N. 23:27 12/21/16. BP: 140/91 (regular adult cuff) taken on the left arm. HR: 82. RR: 16. O2 saturation: 96% on room air. Pain level now: 04/01. --23:29 Rubi Burgess R.N. DISPOSITION / DISCHARGE 23:51 12/21/2016 Site #1 removed upon discharge. Bandaid applied. --23:51 Rubi Burgess R.N. 23:51 12/21/2016 Dilaudid IVP Response: no adverse reaction pain is improving. Symptoms have improved the patient feels better. --23:52 Rubi Burgess R.N. 23:52 12/21/16. Condition at departure: improved. No learning barriers present. Discharge instructions provided and reviewed with the patient. Reviewed medication(s) side effects, precautions, dosing and course information. Prescription(s) given to the patient. Patient verbalized understanding. Written instructions provided in Uzbek. The patient was discharged by the physician. She was discharged home and accompanied by spouse. She left the Emergency Department ambulatory and via private vehicle. Spouse driving. --23:52 Rubi Burgess R.N. 23:48 12/21/16. BP: 147/90 (regular adult cuff) taken on the left arm. HR: 86. RR: 16. O2 saturation: 97% on room air. Temp: 97.8 F (oral). Pain level now: 11/29. --23:52 Rubi Burgess R.N. Departure time: 23:52 Dec 21 2016. --23:52 Rubi Burgess R.N. Locked/Released at 12/22/2016 0:06 by Rubi Burgess R.N.
--- NOTE | 2016-12-21 22:22 | ED ORDER SUMMARY ---
..... Patient: RUSSELL SEGOVIA OrderSheet [facility] VisitID: [id number] [place] [address] 36y, F Registration Date/Time: 12/21/2016 ORDER SHEET Weight: 72.1 kg (stated) Allergies: No Known Drug Allergy GENERAL ORDERS: MEDICATION ORDERS: Phenergan IV 25 mg (HIGH ALERT MEDICATION, NOW) (21:57 12/21/2016 Edil GARBER) (Ack 21:58 JSanders R.N.) (22:46 JSanders R.N.) Bactrim DS PO (Tablet 800-160 mg) 1 tab (after IV meds and fluids) (21:57 12/21/2016 Edil GARBER) (Ack 21:58 JSanders R.N.) (23:28 JSanders R.N.) IV FLUIDS: IV NS : initial bolus 1000 mL (1000 mL/hr), then none - (NOW) (21:57 12/21/2016 Edil GARBER) (Ack 21:58 JSanders R.N.) (22:45 JSanders R.N.) Toradol IV 30 mg (NOW) (21:57 12/21/2016 Edil GARBER) (Ack 21:58 JSanders R.N.) (22:46 JSanders R.N.) Dilaudid IV 0.5 mg (HIGH ALERT MEDICATION, NOW) (21:57 12/21/2016 Edil GARBER) (Ack 21:58 JSanders R.N.) (22:47 JSanders R.N.) Dilaudid IV 1 mg (HIGH ALERT MEDICATION, NOW) (23:17 12/21/2016 Edil GARBER) (23:25 JSanders R.N.) ORDER SHEET NOTES: [Electronically signed by Rubi Burgess R.N. (00:06 12/22/2016)] [Electronically signed by Lidia Nieves MD (16:05 01/03/2017)] [Electronically locked/signed by Rubi Burgess R.N. (00:06 12/22/2016)]
--- NOTE | 2017-01-03 16:05 | ED DISCHARGE INSTRUCTIONS ---
Patient: RUSSELL SEGOVIA General Instructions [facility] VisitID: [id number] [place] [address] 36y, F Registration Date/Time: 12/21/2016 Acute migraine and tension headache. 2. Infected skin lesion. INSTRUCTIONS Warnings: SEDATIVE MEDICATION: You were given sedative medication during your visit. Do not drive or operate dangerous machinery for 6 hours. GENERAL WARNINGS: Return or contact your physician immediately if your condition worsens or changes unexpectedly, if not improving as expected, or if other problems arise. Your Current Medications: CONTINUE TAKING THE FOLLOWING MEDICATIONS: Ibuprofen Oral : 600 mg 3x a day. Percocet Oral : ran out of the percocet. Prescription Medications: Hydrocodone/APAP 5mg / 325mg: take 1 orally every 6 hours as needed for pain. Dispense five (5). No refill. Zofran (orally disintegrating tablets) 4 mg: take 1 orally every 6 hours as needed for nausea. Dispense ten (10). No refill. Substitution is permissible. Bactrim DS 800 mg / 160 mg: take 1 tablet orally every 12 hours for 6 days. No refill. Substitution is permissible. Ibuprofen 800 mg tablets: take 1 tablet orally every 8 hours as needed for pain. Dispense ten (10). No refill. Follow-up: Follow up with your doctor in seven days if not better. Reason for referral: skin lesion on scalp. Understanding of the discharge instructions verbalized by patient. ADDITIONAL INFORMATION Headache [Unspecified] The cause of your headache today is not clear, but it does not appear to be the sign of any serious illness. Under stress, some people tense the muscles of their shoulder, neck and scalp without knowing it. If this condition lasts long enough, a TENSION HEADACHE can occur. A MIGRAINE HEADACHE is caused by changes in blood flow to the brain. A migraine attack may be triggered by emotional stress, hormone changes during the menstrual cycle, oral contraceptives, alcohol use, certain foods containing tyramine, eye strain, weather changes, missing meals, lack of sleep or oversleeping. Other causes of headache include a viral illness with high fever, head injury with concussion, sinus, ear or throat infection, dental pain and TMJ (jaw joint) pain. More serious but less common causes of headache include stroke, brain hemorrhage, brain tumor, meningitis and encephalitis. Home Care: If you were given pain medicine for this headache, do not drive yourself home. Arrange for a ride, instead. When you get home, try to sleep. You should feel much better when you wake up. Apply heat to the back of your neck to relieve neck muscle spasm. Migraine headaches may respond best to an ice pack on the forehead or at the base of the skull. If you are having nausea or vomiting, follow a light diet until your headache is relieved. If you have a migraine type headache, use sunglasses when in the daylight or around bright indoor lighting until symptoms improve. Bright glaring light can worsen this kind of headache. Follow Up with your doctor if the headache is not better within the next 24 hours. If you have frequent headaches you should discuss a treatment plan with your primary care doctor. By being aware of the earliest signs of headache, and starting treatment right away, you may be able to stop the pain yourself. Get Prompt Medical Attention if any of the following occur: Worsening of your head pain or no improvement within 24 hours Repeated vomiting (unable to keep liquids down) Fever of 100.4F (38C) or higher, or as directed by your healthcare provider Stiff neck Extreme drowsiness, confusion or fainting Dizziness, vertigo (dizziness with spinning sensation) Weakness of an arm or leg or one side of the face Difficulty with speech or vision You have been given the following additional information: Headache, Unspecified (Electronically signed by Lidia Nieves MD 01/03/2017 16:05)
--- NOTE | 2017-01-03 16:06 | ED MAR SUMMARY ---
..... Medication Administration Record [facility] [address] [place] [address] Patient: RUSSELL SEGOVIA Visit ID: [id number] 36y, F Weight: 72.1 kg Height/Length: 63 in BMI: 28.2 ALLERGIES: No Known Drug Allergy Start 22:12/21/2016 Rubi Burgess R.N., Stop 23:12/21/2016 Rubi Burgess R.N. Medication Administered: IV NS (SALINE), Dose: IV Fluids, Bolus: 1000 mL over 1 hour(s), Dispensed: 1000 mL bag, Site: #1 right AC. Medication Ordered: IV NS : initial bolus 1000 mL (1000 mL/hr), then none - (NOW). Given :12/21/2016 Rubi Burgess R.N. Medication Administered: TORADOL [IVP], Dose: 30 mg IVP over 1 minute(s), Site: #1 right AC. Medication Ordered: Toradol IV 30 mg (NOW). Given :12/21/2016 Rubi Burgess R.N. Medication Administered: DILAUDID [IVP] (HYDROMORPHONE HCL PF), Dose: 0.5 mg IVP over 1 minute(s), Site: #1 right AC. Medication Ordered: Dilaudid IV 0.5 mg (HIGH ALERT MEDICATION, NOW). Given :12/21/2016 Rubi Burgess R.N. Medication Administered: PHENERGAN [IVP] (PROMETHAZINE HCL), Dose: 25 mg IVP over 2 minute(s), Site: #1 right AC. Medication Ordered: Phenergan IV 25 mg (HIGH ALERT MEDICATION, NOW). Given :12/21/2016 Rubi Burgess R.N. Medication Administered: DILAUDID [IVP] (HYDROMORPHONE HCL PF), Dose: 1 mg IVP over 1 minute(s), Site: #1 right AC. Medication Ordered: Dilaudid IV 1 mg (HIGH ALERT MEDICATION, NOW). Given :12/21/2016 Rubi Burgess R.N. Medication Administered: BACTRIM DS [PO] (SULFAMETHOXAZOLE-TMP DS), Dose: 1 tab Tablets PO. Medication Ordered: Bactrim DS PO (Tablet 800-160 mg) 1 tab (after IV meds and fluids).
--- NOTE | 2017-01-03 16:06 | ED MED RECONCILIATION SUMMARY ---
Patient: RUSSELL SEGOVIA Medication Reconciliation Report [facility] VisitID: [id number] [address] [place] [address] 36y, F Registration Date/Time: 12/21/2016 Weight: 72.1 kg Height/Length: 63 in. BMI: 28.2 ALLERGIES: No Known Drug Allergy The patient's Home Medications are listed below: CONTINUE TAKING THE FOLLOWING MEDICATIONS: Ibuprofen Oral 600 mg, 3x a day Percocet Oral, ran out of the percocet The source(s) of the original Home Medication information: Not obtained. The following Medications were given to the patient in the Emergency Department: IV NS IV Fluids bolus 1000 mL over 1 hour(s), administered: 12/21/2016 10:20:00 PM Toradol [IVP] IVP 30 mg, administered: 12/21/2016 10:24:00 PM PHENERGAN [IVP] IVP 25 mg, administered: 12/21/2016 10:30:00 PM Dilaudid [IVP] IVP 0.5 mg, administered: 12/21/2016 10:26:00 PM Dilaudid [IVP] IVP 1 mg, administered: 12/21/2016 11:25:00 PM Bactrim DS [PO] PO 1 tab, administered: 12/21/2016 11:28:00 PM The following Medications were prescribed to the patient: Hydrocodone/APAP 5mg / 325mg: take 1 orally every 6 hours as needed for pain. Dispense five (5). No refill. -- Lidia Nieves MD Zofran (orally disintegrating tablets) 4 mg: take 1 orally every 6 hours as needed for nausea. Dispense ten (10). No refill. Substitution is permissible. -- Lidia Nieves MD Bactrim DS 800 mg / 160 mg: take 1 tablet orally every 12 hours for 6 days. No refill. Substitution is permissible. -- Lidia Nieves MD Ibuprofen 800 mg tablets: take 1 tablet orally every 8 hours as needed for pain. Dispense ten (10). No refill. -- Lidia Nieves MD
--- NOTE | 2017-01-03 16:06 | ED MAR SUMMARY ---
..... Medication Administration Record [facility] [address] [place] [address] Patient: RUSSELL SEGOVIA Visit ID: [id number] 36y, F Weight: 72.1 kg Height/Length: 63 in BMI: 28.2 ALLERGIES: No Known Drug Allergy Start 22:12/21/2016 Rubi Burgess R.N., Stop 23:12/21/2016 Rubi Burgess R.N. Medication Administered: IV NS (SALINE), Dose: IV Fluids, Bolus: 1000 mL over 1 hour(s), Dispensed: 1000 mL bag, Site: #1 right AC. Medication Ordered: IV NS : initial bolus 1000 mL (1000 mL/hr), then none - (NOW). Given :12/21/2016 Rubi Burgess R.N. Medication Administered: TORADOL [IVP], Dose: 30 mg IVP over 1 minute(s), Site: #1 right AC. Medication Ordered: Toradol IV 30 mg (NOW). Given :12/21/2016 Rubi Burgess R.N. Medication Administered: DILAUDID [IVP] (HYDROMORPHONE HCL PF), Dose: 0.5 mg IVP over 1 minute(s), Site: #1 right AC. Medication Ordered: Dilaudid IV 0.5 mg (HIGH ALERT MEDICATION, NOW). Given :12/21/2016 Rubi Burgess R.N. Medication Administered: PHENERGAN [IVP] (PROMETHAZINE HCL), Dose: 25 mg IVP over 2 minute(s), Site: #1 right AC. Medication Ordered: Phenergan IV 25 mg (HIGH ALERT MEDICATION, NOW). Given :12/21/2016 Rubi Burgess R.N. Medication Administered: DILAUDID [IVP] (HYDROMORPHONE HCL PF), Dose: 1 mg IVP over 1 minute(s), Site: #1 right AC. Medication Ordered: Dilaudid IV 1 mg (HIGH ALERT MEDICATION, NOW). Given :12/21/2016 Rubi Burgess R.N. Medication Administered: BACTRIM DS [PO] (SULFAMETHOXAZOLE-TMP DS), Dose: 1 tab Tablets PO. Medication Ordered: Bactrim DS PO (Tablet 800-160 mg) 1 tab (after IV meds and fluids).
--- NOTE | 2017-01-03 16:06 | ED MED RECONCILIATION SUMMARY ---
Patient: RUSSELL SEGOVIA Medication Reconciliation Report [facility] VisitID: [id number] [address] [place] [address] 36y, F Registration Date/Time: 12/21/2016 Weight: 72.1 kg Height/Length: 63 in. BMI: 28.2 ALLERGIES: No Known Drug Allergy The patient's Home Medications are listed below: CONTINUE TAKING THE FOLLOWING MEDICATIONS: Ibuprofen Oral 600 mg, 3x a day Percocet Oral, ran out of the percocet The source(s) of the original Home Medication information: Not obtained. The following Medications were given to the patient in the Emergency Department: IV NS IV Fluids bolus 1000 mL over 1 hour(s), administered: 12/21/2016 10:20:00 PM Toradol [IVP] IVP 30 mg, administered: 12/21/2016 10:24:00 PM PHENERGAN [IVP] IVP 25 mg, administered: 12/21/2016 10:30:00 PM Dilaudid [IVP] IVP 0.5 mg, administered: 12/21/2016 10:26:00 PM Dilaudid [IVP] IVP 1 mg, administered: 12/21/2016 11:25:00 PM Bactrim DS [PO] PO 1 tab, administered: 12/21/2016 11:28:00 PM The following Medications were prescribed to the patient: Hydrocodone/APAP 5mg / 325mg: take 1 orally every 6 hours as needed for pain. Dispense five (5). No refill. -- Lidia Nieves MD Zofran (orally disintegrating tablets) 4 mg: take 1 orally every 6 hours as needed for nausea. Dispense ten (10). No refill. Substitution is permissible. -- Lidia Nieves MD Bactrim DS 800 mg / 160 mg: take 1 tablet orally every 12 hours for 6 days. No refill. Substitution is permissible. -- Lidia Nieves MD Ibuprofen 800 mg tablets: take 1 tablet orally every 8 hours as needed for pain. Dispense ten (10). No refill. -- Lidia Nieves MD
== END 2016-12-21 23:52 | disposition home or self-care (01) ==
LOC: ED SRH 20:24
DX: G43.909 Migraine, unspecified, not intractable, without status migrainosus (principal); G44.209 Tension-type headache, unspecified, not intractable; L08.9 Local infection of the skin and subcutaneous tissue, unspecified; Z79.891 Long term (current) use of opiate analgesic; Z79.1 Long term (current) use of non-steroidal anti-inflammatories (NSAID)

== ENCOUNTER 2016-12-23 16:39 | Emergency (ER) | payer OTHER ==
--- NOTE | 2016-12-23 17:42 | DIAGNOSTIC IMAGING REPORT ---
PROCEDURE: CT HEAD WITHOUT CONTRAST INDICATION: HEADACHE TECHNIQUE: Noncontrast axial images with sagittal and coronal reformations. COMPARISON: None. FINDINGS: Sulci, ventricular system, and brain parenchyma are normal. No evidence of acute intracranial process. Bilateral antral windows. Mild bilateral maxillary sinus disease. Mastoid are clear. IMPRESSION: 1. Negative non-enhanced head CT. 2. Findings discussed with DK Bishop, at 05:40 p.m.[facility] Time
--- NOTE | 2016-12-23 19:38 | ED CLINICAL REPORT ---
Clinical Report - Physicians/Mid Levels [facility] [address] [place] [address] 12/23/2016 16:39 Patient: RUSSELL SEGOVIA Time Seen: 1715 PM. Arrived- By private vehicle. Historian- patient. HISTORY OF PRESENT ILLNESS Is still present and now worse. Chief Complaint: HEADACHE. This started 2 days ago. It is described as "pain". Has had neck pain. At its maximum, severity described as 10 / 10. The patient has had nausea and vomiting. No blurred vision, numbness or weakness. Similar symptoms previously: None. Recent medical care: The patient was seen recently at this facility in the emergency department. ( here 12/21 for EWING "bump on head"-soft tissue swelling, not injury). REVIEW OF SYSTEMS No fever, sinus pressure, ear pain, sore throat or carbon monoxide exposure. No head injury or chest pain. PAST HISTORY See nurses notes. Sinus problems. No history of chronic headaches. No history of head injury, hypertension or diabetes mellitus. Surgeries: Adenoidectomy. Appendectomy. Hernia repair. Knee surgery. Oophorectomy. Sinus surgery. Tonsillectomy. (breast reduction). SOCIAL HISTORY Never smoker. Occasional alcohol use. No drug use. ADDITIONAL NOTES The nursing notes have been reviewed. PHYSICAL EXAM Vital Signs: 12/23/2016 16:45 BP: 150/87. HR: 91. RR: 16. O2 saturation: 96%. Temp: 97.7 F. Pain level now: 10/10. Have been reviewed and appear to be correct. Appearance: Alert. No acute distress. (uncomfortable, avoiding light). Eyes: Photophobia present. Pupils equal, round and reactive to light. Eyes normal inspection. No conjunctival findings or shallow angle. ENT: Ears normal. Nose normal. Neck: Normal inspection. Neck supple. No meningeal signs. CVS: Normal heart rate and rhythm. Respiratory: No respiratory distress. Back: Mild soft-tissue tenderness in the right and left cervical area and right upper and left upper thoracic area. Muscle spasm. No vertebral point tenderness. Skin: Skin warm and dry. Normal skin color. No rash. Normal skin turgor. Neuro: Oriented X 3. Alert. Mood/affect normal. Speech normal. Cranial nerves normal (as tested). LABS, X-RAYS, AND EKG CT Head: Normal study. No acute disease. The study was interpreted by the radiologist (Cecy). Laboratory Tests: Laboratory tests have been ordered, with results reviewed and considered in the medical decision making process. CBC w Diff: (MARVA: 12/23/2016 17:45) ( MsgRcvd 12/23/2016 17:58) Final results Test Result Flag Units (Reference) WHITE BLOOD COUNT 8.4 K/uL (4.5-11.5) RED BLOOD COUNT 4.13 M/uL (4.00-5.20) HEMOGLOBIN 12.4 gm/dL (12.0-16.0) HEMATOCRIT 37.0 % (36.0-46.0) MEAN CELL VOLUME 90 fL (80-100) MEAN CORPUSCULAR HGB 30 pg (26-34) MEAN CORPUSCULAR HGB CONC 33 g/dL (31-37) RED CELL DISTRIBUTION WIDTH 14.8 % (11.6-14.8) PLATELET COUNT 260 K/uL (150-400) NEUTROPHIL % 66.9 % (50-75) LYMPH % 25.0 % (25-40) MONO % 6.1 % (3-14) EOSINOPHIL % 1.7 % (0-4) BASOPHIL % 0.3 % (0-2) CMP: (MARVA: 12/23/2016 17:45) ( NygRcvd 12/23/2016 18:14) Final results Test Result Flag Units (Reference) GLUCOSE 78 mg/dL (70-110) BUN 7 mg/dL (7-18) CREATININE 0.7 mg/dL (0.6-1.3) Estimated GFR >60 mL/min Estimated GFR- >60 mL/min Note: Persistent reduction over 3 months in eGFR<60 mL/min/1.73 m2 defines CKD. Patients with eGFR values>=60 mL/min/1.73 m2 may also have CKD if evidence ofpersistent proteinuria. Additional information may be foundat www.kidney.org. SODIUM 140 mmol/L (136-145) POTASSIUM 3.7 mmol/L (3.5-5.1) CHLORIDE 105 mmol/L (98-107) CARBON DIOXIDE 23 mmol/L (21-32) CALCIUM 8.5 mg/dL (8.5-10.1) TOTAL PROTEIN 7.2 g/dL (6.4-8.2) ALBUMIN 3.7 g/dL (3.3-5.0) BILIRUBIN, TOTAL 0.3 mg/dL (0.0-1.0) ALKALINE PHOSPHATASE 73 U/L (46-116) AST (SGOT) 18 U/L (15-37) ALT (SGPT) 33 U/L (12-78) . PROGRESS AND PROCEDURES Course of Care: 18:01 12/23/16. CT negative. Pt advised of such. Presentation discussed w/ Dr Moody; [facility] rule negative and neuro exam reassuring. Discussed w/ pt that LP not suggested 18:58 12/23/16. pt still rating her EWING at 10; however, moving more easily in bed, and requesting ice water. Meds as noted and 2nd bag fluid ordered. 19:44 12/23/16. Still rating EWING at 10-however, behaving more calmly, not photophobic. Advised her expressly I felt this might be medication rebound EWING. Will give her a small dose of opiate, that will likely NOT resolve her EWING. Narcotic care plan also to be given for review. Explained need to avoid all painkillers to break through this. 20:25 12/23/16. Fluids in. Reviewed plan w/ pt again and rationale. Verbalizes understanding. Awaiting return of spouse. 21:09 12/23/16. pt was discharged home in improved/stable condition. No neurologic deterioration. Able to take oral fluids. Copy of narcotic care plan given. Patient is stable. Physical exam findings are improved. Patient/family counseled. Old ED records reviewed. Disposition: Discharged. Condition: stable. CLINICAL IMPRESSION Tension-type headache. INSTRUCTIONS Rest. (Your head CT and labs were normal. Neurologic exam appears normal. I suspect this is a tension/medication rebound headache. Recommend using the steroid and ice/heat and muscle relaxers and avoiding any painkillers for the next week-including tylenol or ibuprofen, etc. See your PCP Luc for a recheck and to make a game plan At this point in time it does not appear that you need a spinal tap. Should the headache persist, that might be indicated.). Warnings: SEDATIVE MEDICATION: You were given sedative medication during your visit. Do not drive or operate dangerous machinery. GENERAL WARNINGS: Return or contact your physician immediately if your condition worsens or changes unexpectedly, if not improving as expected, or if other problems arise. Prescription monitor program consulted due to pt has had multiple narcotics past 2 months. Prescription Medications: Tizanidine 4 mg: take 1-2 tablets orally every 8 hours as needed. Dispense fifteen (15). No refills. Dexamethasone 4 mg: ( taper) Promethazine 25 mg suppositories: insert 1 suppository into the rectum every 6 hours as needed for nausea. Dispense six (6). No refill. Follow-up: Follow up with your doctor Sunday even if well. Understanding of the discharge instructions verbalized. (Electronically signed by Winter Cantu A.R.N.P. 12/23/2016 21:10)
--- NOTE | 2016-12-23 19:38 | ED ORDER SUMMARY ---
..... Patient: RUSSELL SEGOVIA OrderSheet [facility] VisitID: [id number] [place] [address] 36y, F Registration Date/Time: 12/23/2016 ORDER SHEET Weight: 72.1 kg (stated) Allergies: None GENERAL ORDERS: CT Head wo Cont Urgent (17:18 12/23/2016 SThom A.R.N.P.) (Ack 17:21 OHernandez) (17:33 OHernandez) CBC w Diff Urgent (17:18 12/23/2016 SThom A.R.N.P.) (Ack 17:21 OHernandez) (18:01 KKnebel R.N.) CMP Urgent (17:18 12/23/2016 SThom A.R.N.P.) (Ack 17:21 OHernandez) (18:01 KKnebel R.N.) MEDICATION ORDERS: Promethazine IV 12.5 mg (HIGH ALERT MEDICATION) (18:40 12/23/2016 SThom A.R.N.P.) (18:57 KWilliams R.N.) IV FLUIDS: IV NS with Normal Saline 1 Liter: initial bolus none -, then 1000 mL/hr for X1 (NOW); Routine (17:17 12/23/2016 SThom A.R.N.P.) (17:59 KKnebel R.N.) Decadron IV 10 mg (NOW) (17:17 12/23/2016 SThom A.R.N.P.) (18:00 KKnebel R.N.) Diphenhydramine IV 12.5 mg (NOW, IVP) (17:18 12/23/2016 SThom A.R.N.P.) (18:00 KKnebel R.N.) Zofran IV 4 mg (NOW) (17:18 12/23/2016 SThom A.R.N.P.) (18:01 KKnebel R.N.) Ketorolac IV 30 mg (NOW) (18:40 12/23/2016 SThom A.R.N.P.) (18:56 KWilliams R.N.) LORazepam IV 0.5 mg (HIGH ALERT MEDICATION, NOW) (18:41 12/23/2016 SThom A.R.N.P.) (18:58 KWilliams R.N.) IV NS with Normal Saline 1 Liter: initial bolus none -, then 1000 mL/hr for X1 (NOW); Routine (18:44 12/23/2016 SThom A.R.N.P.) (18:58 KWilliams R.N.) HYDROmorphone IV 0.5 mg (NOW) (19:37 12/23/2016 SThom A.R.N.P.) (19:51 KKnebel R.N.) Diphenhydramine IV 12.5 mg (NOW) (19:37 12/23/2016 SThom A.R.N.P.) (19:51 KKnebel R.N.) ORDER SHEET NOTES: [Electronically signed by Winter CantuRMarthaN.PMartha (21:10 12/23/2016)] [Electronically signed by Malinda Berg R.N. (11:00 12/24/2016)] [Electronically locked/signed by Malinda Berg R.N. (11:00 12/24/2016)]
--- NOTE | 2016-12-23 19:38 | ED NURSING NOTES ---
Clinical Report - Nurses Formerly [facility] [address] [place] [place] [address] 12/23/2016 16:39 Patient: RUSSELL SEGOVIA TRIAGE Triage time 16:46 Dec 23 2016. Acuity: LEVEL 3. Chief Complaint: HEADACHE. PARTH COMA SCORE: Parth Coma Scale: 15- eyes open spontaneously (4); best verbal response- oriented x 4 (5); best motor response- obeys commands (6). --16:50 Malinda Berg R.N. 16:45 12/23/16. BP: 150/87. HR: 91. RR: 16. O2 saturation: 96%. Temp: 97.7 F. Pain level now: 05/01. --16:50 Malinda Berg R.N. Weight: 72.1 kg stated. Height/Length: 63 inches Per Patient. BMI: 28.2. --16:48 Malinda Berg R.N. Medications None. --16:47 Malinda Berg R.N. Allergies None. --16:47 Malinda Berg R.N. History Arrived by private vehicle. Historian: patient. Accompanied by family. This started about 2 days ago. She has had nausea and vomiting. Treatment STATION CHIEF: Seen within the last 30 days in the ED; treatment- pain medication. PAST MEDICAL HX: Immunizations: up-to-date. Last normal menstrual period- about 24 days ago. SOCIAL HX: Never smoker. Occasional alcohol use. No drug use. Recent travel. No infectious disease exposure. No known contact with a sick individual. SELF HARM ASSESSMENT: A self harm assessment was performed. The patient answered "no" to the question "Do you have thoughts of harming or killing yourself?". FALL RISK ASSESSMENT: Fall risk assessment completed. No fall risk identified. NUTRITIONAL RISK ASSESSMENT: The nutritional risk assessment revealed no deficiencies. FUNCTIONAL ASSESSMENT: Functional assessment: no impairments noted. LEARNING NEEDS ASSESSMENT: The learning needs assessment revealed no barriers. ABUSE ASSESSMENT: Abuse assessment: The patient was asked "Do you feel safe in your home?". SKIN INTEGRITY ASSESSMENT: Skin integrity risk assessment completed. No skin integrity risk identified. --16:50 Malinda Berg R.N. PROBLEMS: Sinus Problems. Headache. Knee Injury. Sprain. Ovarian Cyst. --16:48 Malinda Berg R.N. ADDITIONAL SURGERIES: Adenoidectomy. Appendectomy. Breast reduction . Dental Surgery. Hernia Repair. Knee Surgery. Oophorectomy. Sinus Surgery. Tonsillectomy. --16:48 Malinda Berg R.N. Interventions ID band on patient. To room. --16:50 Malinda Berg R.N. PHYSICAL ASSESSMENT To room via wheelchair. GENERAL / NEURO / PSYCH: Alert. Oriented X 4. Appears in pain. Speech within normal limits. HEENT: No facial asymmetry noted. RESPIRATORY: Respirations not labored. CVS: Capillary refill less than 2 seconds. GI / : Abdomen soft and nontender. SKIN: Skin is warm and dry. --16:51 Malinda Berg R.N. NURSING PROGRESS NOTES Patient gowned. Head of bed elevated. Patient identifiers checked. Call light placed in reach. Side rails up x 1. Bed placed in lowest position. Brakes of bed on. --16:51 Malinda Berg R.N. 17:44 12/23/2016 Site #1 started via IV in the right antecubital space with an 22g angiocath, with aseptic technique and good blood return; one attempt. Blood drawn: rainbow set. Labeled in the presence of the patient and sent to the lab. Saline lock flushed with 10 mL saline. --17:59 Malinda Berg R.N. 17:49 12/23/2016 Started bag #1 1000 mL IV Fluids IV NS (Saline); bolus of 1000 mL over 1 hour(s) via site #1 via IV pump. Allergies verified and confirmed 5 rights. IV patency established. IV site checked: no pain, redness, or swelling. IV flushed thoroughly pre- and post-medication administration. --17:59 Malinda Berg R.N. 17:55 12/23/2016 Decadron IVP 10 mg given over 2 minute(s) via site #1. Allergies verified and confirmed 5 rights. IV patency established. IV site checked: no pain, redness, or swelling. IV flushed thoroughly pre- and post-medication administration. IVP given by RN. --18:00 Malinda Berg R.N. 17:57 12/23/2016 Diphenhydramine IVP 12.5 mg given over 2 minute(s) via site #1. Allergies verified, confirmed 5 rights and sedative warning given to the patient. IV patency established. IV site checked: no pain, redness, or swelling. IV flushed thoroughly pre- and post-medication administration. IVP given by RN. --18:00 Malinda Berg R.N. 18:01 12/23/2016 Zofran (Ondansetron HCl) IVP 4 mg given over 2 minute(s) via site #1. Allergies verified and confirmed 5 rights. IV patency established. IV site checked: no pain, redness, or swelling. IV flushed thoroughly pre- and post-medication administration. IVP given by RN. --18:01 Malinda Berg R.N. The patient is calm and resting quietly. --18:02 Malinda Berg R.N. 18:48 12/23/2016 Started bag #2 1000 mL IV Fluids IV NS (Saline); at 999 mL/hr over 1 hour(s) via site #1 via IV pump. Allergies verified and confirmed 5 rights. IV patency established. IV site checked: no pain, redness, or swelling. IV flushed thoroughly pre- and post-medication administration. Completed per protocol. --18:58 Jimbo Keane R.N. 18:50 12/23/2016 Ketorolac IVP 30 mg given over 2 minute(s) via site #1. Allergies verified and confirmed 5 rights. IV patency established. IV site checked: no pain, redness, or swelling. IV flushed thoroughly pre- and post-medication administration. IVP given by RN. --18:56 Jimbo Keane R.N. 18:52 12/23/2016 PROMETHAZINE IVP 12.5 mg given over 2 minute(s) via site #1. Allergies verified and confirmed 5 rights. IV patency established. IV site checked: no pain, redness, or swelling. IV flushed thoroughly pre- and post-medication administration. IVP given by RN. --18:57 Jimbo Keane R.N. 18:54 12/23/2016 Lorazepam (LORazepam) IVP 0.5 mg given over 2 minute(s) via site #1. Allergies verified, confirmed 5 rights and sedative warning given to the patient and patient's family. IV patency established. IV site checked: no pain, redness, or swelling. IV flushed thoroughly pre- and post-medication administration. IVP given by RN. --18:57 Jimbo Keane R.N. The patient reports no complaints and she is calm and resting quietly. --18:59 Jimbo Keane R.N. 19:27 12/23/16. BP: 159/91. HR: 83. RR: 16. O2 saturation: 95%. Pain level now: 05/01. --19:28 Malinda Berg R.N. The patient is calm and resting quietly. Overall patient status is the same- she states feels the same. GENERAL / NEURO / PSYCH: The patient reports headache is still present and is currently severe. Alert. Oriented X 4. RESPIRATORY: No respiratory distress. SKIN: Skin is warm and dry. --19:28 Malinda Berg R.N. 19:46 12/23/2016 Hydromorphone IVP 0.5 mg given over 2 minute(s) via site #1. Allergies verified, confirmed 5 rights and sedative warning given to the patient. IV patency established. IV site checked: no pain, redness, or swelling. IV flushed thoroughly pre- and post-medication administration. IVP given by RN. --19:51 Malinda Berg R.N. 19:48 12/23/2016 Diphenhydramine IVP 12.5 mg given over 2 minute(s) via site #1. Allergies verified, confirmed 5 rights and sedative warning given to the patient. IV patency established. IV site checked: no pain, redness, or swelling. IV flushed thoroughly pre- and post-medication administration. IVP given by RN. --19:51 Malinda Berg R.N. DISPOSITION / DISCHARGE <<STRICKEN ENTRY-- Departure time: 16:56 Dec 23 2016. Condition at departure: unchanged. No learning barriers present. Discharge instructions provided and reviewed with the patient. Reviewed referral to a primary care physician for followup. Patient verbalized understanding. Written instructions provided in [place]. The patient was discharged home and accompanied by spouse. She left the Emergency Department ambulatory and via private vehicle. Spouse driving. FALL RISK ASSESSMENT: Fall risk assessment completed. No fall risk identified. --16:56 Malinda Berg R.N. --END STRIKE>> Charted On Wrong Patient --16:56 Malinda Berg R.N. Departure time: 20:33 Dec 23 2016. Condition at departure: improved. No learning barriers present. Discharge instructions provided and reviewed with the patient. Reviewed medication(s) side effects, precautions, dosing and course information. Prescription(s) given to the patient. Reviewed referral to a primary care physician for followup. Patient verbalized understanding. Written instructions provided in [place]. The patient was discharged home and accompanied by spouse. She left the Emergency Department ambulatory and via private vehicle. Spouse driving. FALL RISK ASSESSMENT: Fall risk assessment completed. No fall risk identified. --20:33 Malinda Berg R.N. 20:32 12/23/16. BP: 153/92. HR: 82. RR: 16. O2 saturation: 93%. Pain level now: 04/01. --20:33 Malinda Berg R.N. Locked/Released at 12/24/2016 11:00 by Malinda Berg R.N.
--- NOTE | 2016-12-23 19:38 | ED ORDER SUMMARY ---
..... Patient: RUSSELL SEGOVIA OrderSheet [facility] VisitID: [id number] [place] [address] 36y, F Registration Date/Time: 12/23/2016 ORDER SHEET Weight: 72.1 kg (stated) Allergies: None GENERAL ORDERS: CT Head wo Cont Urgent (17:18 12/23/2016 SThom A.R.N.P.) (Ack 17:21 OHernandez) (17:33 OHernandez) CBC w Diff Urgent (17:18 12/23/2016 SThom A.R.N.P.) (Ack 17:21 OHernandez) (18:01 KKnebel R.N.) CMP Urgent (17:18 12/23/2016 SThom A.R.N.P.) (Ack 17:21 OHernandez) (18:01 KKnebel R.N.) MEDICATION ORDERS: Promethazine IV 12.5 mg (HIGH ALERT MEDICATION) (18:40 12/23/2016 SThom A.R.N.P.) (18:57 KWilliams R.N.) IV FLUIDS: IV NS with Normal Saline 1 Liter: initial bolus none -, then 1000 mL/hr for X1 (NOW); Routine (17:17 12/23/2016 SThom A.R.N.P.) (17:59 KKnebel R.N.) Decadron IV 10 mg (NOW) (17:17 12/23/2016 SThom A.R.N.P.) (18:00 KKnebel R.N.) Diphenhydramine IV 12.5 mg (NOW, IVP) (17:18 12/23/2016 SThom A.R.N.P.) (18:00 KKnebel R.N.) Zofran IV 4 mg (NOW) (17:18 12/23/2016 SThom A.R.N.P.) (18:01 KKnebel R.N.) Ketorolac IV 30 mg (NOW) (18:40 12/23/2016 SThom A.R.N.P.) (18:56 KWilliams R.N.) LORazepam IV 0.5 mg (HIGH ALERT MEDICATION, NOW) (18:41 12/23/2016 SThom A.R.N.P.) (18:58 KWilliams R.N.) IV NS with Normal Saline 1 Liter: initial bolus none -, then 1000 mL/hr for X1 (NOW); Routine (18:44 12/23/2016 SThom A.R.N.P.) (18:58 KWilliams R.N.) HYDROmorphone IV 0.5 mg (NOW) (19:37 12/23/2016 SThom A.R.N.P.) (19:51 KKnebel R.N.) Diphenhydramine IV 12.5 mg (NOW) (19:37 12/23/2016 SThom A.R.N.P.) (19:51 KKnebel R.N.) ORDER SHEET NOTES: [Electronically signed by Winter CantuRMarthaN.PMartha (21:10 12/23/2016)] [Electronically signed by Malinda Berg R.N. (11:00 12/24/2016)] [Electronically locked/signed by Malinda Berg R.N. (11:00 12/24/2016)]
--- NOTE | 2016-12-24 11:00 | ED MAR SUMMARY ---
..... Medication Administration Record [facility] [address] [place] [address] Patient: RUSSELL SEGOVIA Visit ID: [id number] 36y, F Weight: 72.1 kg Height/Length: 63 in BMI: 28.2 ALLERGIES: None Start 17:49 12/23/2016 Malinda Berg R.N. Medication Administered: IV NS (SALINE), Dose: IV Fluids, Bolus: 1000 mL over 1 hour(s), Dispensed: 1000 mL bag, Site: #1 right AC. Medication Ordered: IV NS with Normal Saline 1 Liter: initial bolus none -, then 1000 mL/hr for X1 (NOW); Routine. Given 17:55 12/23/2016 Malinda Berg R.N. Medication Administered: DECADRON [IVP], Dose: 10 mg IVP over 2 minute(s), Site: #1 right AC. Medication Ordered: Decadron IV 10 mg (NOW). Given 17:57 12/23/2016 Malinda Berg R.N. Medication Administered: DIPHENHYDRAMINE [IVP], Dose: 12.5 mg IVP over 2 minute(s), Site: #1 right AC. Medication Ordered: Diphenhydramine IV 12.5 mg (NOW, IVP). Given 18:01 12/23/2016 Malinda Berg R.N. Medication Administered: ZOFRAN [IVP] (ONDANSETRON HCL), Dose: 4 mg IVP over 2 minute(s), Site: #1 right AC. Medication Ordered: Zofran IV 4 mg (NOW). Start 18:48 12/23/2016 Jimbo Keane R.N. Medication Administered: IV NS (SALINE), Dose: IV Fluids over 1 hour(s), Rate: 999 mL/hr, Dispensed: 1000 mL bag, Site: #1 right AC. Medication Ordered: IV NS with Normal Saline 1 Liter: initial bolus none -, then 1000 mL/hr for X1 (NOW); Routine. Given 18:50 12/23/2016 Jimbo Keane R.N. Medication Administered: KETOROLAC [IVP], Dose: 30 mg IVP over 2 minute(s), Site: #1 right AC. Medication Ordered: Ketorolac IV 30 mg (NOW). Given 18:52 12/23/2016 Jimbo Keane R.N. Medication Administered: PROMETHAZINE [IVP], Dose: 12.5 mg IVP over 2 minute(s), Site: #1 right AC. Medication Ordered: Promethazine IV 12.5 mg (HIGH ALERT MEDICATION). Given 18:54 12/23/2016 Jimbo Keane R.N. Medication Administered: LORAZEPAM [IVP] (LORAZEPAM), Dose: 0.5 mg IVP over 2 minute(s), Site: #1 right AC. Medication Ordered: LORazepam IV 0.5 mg (HIGH ALERT MEDICATION, NOW). Given 19:46 12/23/2016 Malinda Berg R.N. Medication Administered: HYDROMORPHONE [IVP], Dose: 0.5 mg IVP over 2 minute(s), Site: #1 right AC. Medication Ordered: HYDROmorphone IV 0.5 mg (NOW). Given 19:48 12/23/2016 Malinda Berg R.N. Medication Administered: DIPHENHYDRAMINE [IVP], Dose: 12.5 mg IVP over 2 minute(s), Site: #1 right AC. Medication Ordered: Diphenhydramine IV 12.5 mg (NOW).
--- NOTE | 2016-12-24 11:00 | ED MAR SUMMARY ---
..... Medication Administration Record [facility] [address] [place] [address] Patient: RUSSELL SEGOVIA Visit ID: [id number] 36y, F Weight: 72.1 kg Height/Length: 63 in BMI: 28.2 ALLERGIES: None Start 17:49 12/23/2016 Malinda Berg R.N. Medication Administered: IV NS (SALINE), Dose: IV Fluids, Bolus: 1000 mL over 1 hour(s), Dispensed: 1000 mL bag, Site: #1 right AC. Medication Ordered: IV NS with Normal Saline 1 Liter: initial bolus none -, then 1000 mL/hr for X1 (NOW); Routine. Given 17:55 12/23/2016 Malinda Berg R.N. Medication Administered: DECADRON [IVP], Dose: 10 mg IVP over 2 minute(s), Site: #1 right AC. Medication Ordered: Decadron IV 10 mg (NOW). Given 17:57 12/23/2016 Malinda Berg R.N. Medication Administered: DIPHENHYDRAMINE [IVP], Dose: 12.5 mg IVP over 2 minute(s), Site: #1 right AC. Medication Ordered: Diphenhydramine IV 12.5 mg (NOW, IVP). Given 18:01 12/23/2016 Malinda Berg R.N. Medication Administered: ZOFRAN [IVP] (ONDANSETRON HCL), Dose: 4 mg IVP over 2 minute(s), Site: #1 right AC. Medication Ordered: Zofran IV 4 mg (NOW). Start 18:48 12/23/2016 Jimbo Keane R.N. Medication Administered: IV NS (SALINE), Dose: IV Fluids over 1 hour(s), Rate: 999 mL/hr, Dispensed: 1000 mL bag, Site: #1 right AC. Medication Ordered: IV NS with Normal Saline 1 Liter: initial bolus none -, then 1000 mL/hr for X1 (NOW); Routine. Given 18:50 12/23/2016 Jimbo Keane R.N. Medication Administered: KETOROLAC [IVP], Dose: 30 mg IVP over 2 minute(s), Site: #1 right AC. Medication Ordered: Ketorolac IV 30 mg (NOW). Given 18:52 12/23/2016 Jimbo Keane R.N. Medication Administered: PROMETHAZINE [IVP], Dose: 12.5 mg IVP over 2 minute(s), Site: #1 right AC. Medication Ordered: Promethazine IV 12.5 mg (HIGH ALERT MEDICATION). Given 18:54 12/23/2016 Jimbo Keane R.N. Medication Administered: LORAZEPAM [IVP] (LORAZEPAM), Dose: 0.5 mg IVP over 2 minute(s), Site: #1 right AC. Medication Ordered: LORazepam IV 0.5 mg (HIGH ALERT MEDICATION, NOW). Given 19:46 12/23/2016 Malinda Berg R.N. Medication Administered: HYDROMORPHONE [IVP], Dose: 0.5 mg IVP over 2 minute(s), Site: #1 right AC. Medication Ordered: HYDROmorphone IV 0.5 mg (NOW). Given 19:48 12/23/2016 Malinda Berg R.N. Medication Administered: DIPHENHYDRAMINE [IVP], Dose: 12.5 mg IVP over 2 minute(s), Site: #1 right AC. Medication Ordered: Diphenhydramine IV 12.5 mg (NOW).
--- NOTE | 2016-12-24 11:00 | ED MED RECONCILIATION SUMMARY ---
Patient: RUSSELL SEGOVIA Medication Reconciliation Report [facility] VisitID: [id number] [address] [place] [address] 36y, F Registration Date/Time: 12/23/2016 Weight: 72.1 kg Height/Length: 63 in. BMI: 28.2 ALLERGIES: None The patient's Home Medications are listed below: NONE. The source(s) of the original Home Medication information: Not obtained. The following Medications were given to the patient in the Emergency Department: IV NS IV Fluids bolus 1000 mL over 1 hour(s), administered: 12/23/2016 5:49:00 PM Decadron [IVP] IVP 10 mg, administered: 12/23/2016 5:55:00 PM Diphenhydramine [IVP] IVP 12.5 mg, administered: 12/23/2016 5:57:00 PM Zofran [IVP] IVP 4 mg, administered: 12/23/2016 6:01:00 PM Ketorolac [IVP] IVP 30 mg, administered: 12/23/2016 6:50:00 PM PROMETHAZINE [IVP] IVP 12.5 mg, administered: 12/23/2016 6:52:00 PM Lorazepam [IVP] IVP 0.5 mg, administered: 12/23/2016 6:54:00 PM IV NS IV Fluids bolus 0, then 999 mL/hr, administered: 12/23/2016 6:48:00 PM Hydromorphone [IVP] IVP 0.5 mg, administered: 12/23/2016 7:46:00 PM Diphenhydramine [IVP] IVP 12.5 mg, administered: 12/23/2016 7:48:00 PM The following Medications were prescribed to the patient: Tizanidine 4 mg: take 1-2 tablets orally every 8 hours as needed. Dispense fifteen (15). No refills. -- Winter Cantu A.R.NMarthaPMartha Dexamethasone 4 mg:( taper) -- Winter Cantu A.R.NMarthaPMartha Promethazine 25 mg suppositories: insert 1 suppository into the rectum every 6 hours as needed for nausea. Dispense six (6). No refill. -- Winter Cantu A.R.N.P.
--- NOTE | 2016-12-24 11:00 | ED DISCHARGE INSTRUCTIONS ---
Patient: RUSSELL SEGOVIA General Instructions [facility] VisitID: [id number] [place] [address] 36y, F Registration Date/Time: 12/23/2016 Tension-type headache. INSTRUCTIONS Rest. (Your head CT and labs were normal. Neurologic exam appears normal. I suspect this is a tension/medication rebound headache. Recommend using the steroid and ice/heat and muscle relaxers and avoiding any painkillers for the next week-including tylenol or ibuprofen, etc. See your PCP Sunday for a recheck and to make a game plan At this point in time it does not appear that you need a spinal tap. Should the headache persist, that might be indicated.). Warnings: SEDATIVE MEDICATION: You were given sedative medication during your visit. Do not drive or operate dangerous machinery. GENERAL WARNINGS: Return or contact your physician immediately if your condition worsens or changes unexpectedly, if not improving as expected, or if other problems arise. Prescription monitor program consulted due to pt has had multiple narcotics past 2 months. Prescription Medications: Tizanidine 4 mg: take 1-2 tablets orally every 8 hours as needed. Dispense fifteen (15). No refills. Dexamethasone 4 mg: ( taper) Promethazine 25 mg suppositories: insert 1 suppository into the rectum every 6 hours as needed for nausea. Dispense six (6). No refill. Follow-up: Follow up with your doctor Sunday even if well. Understanding of the discharge instructions verbalized. ADDITIONAL INFORMATION Tension Headache Muscle Tension Headache (also called "stress headache") is a very common cause of head pain. Under stress, some people tense the muscles of their shoulder, neck and scalp without knowing it. If this lasts long enough, a headache can occur. These headaches can be very painful and last for hours or even days. Home Care: If you were given pain medicine for this headache, do not drive yourself home. Arrange for a ride, instead. When you get home, try to sleep. You should feel much better when you wake up. Heat to the back of your neck may relieve neck spasm. Drink only clear liquids or eat a very light diet to avoid nausea/vomiting until symptoms improve. Preventing Future Headaches Identify the sources of stress in your life. These may not be obvious! Learn new ways to handle your stress, such as regular exercise, biofeedback, self-hypnosis and meditation. For more information about this, consult your doctor or go to a local bookstore and review the many books and tapes on this subject. At the first sign of a tension headache, take time out if possible. Remove yourself from the stressful situation, find a quiet comfortable place to sit or lie down and let yourself relax. Heat and deep massage of the tight areas in the neck and shoulders may help reduce muscle spasm. Medicine, such as ibuprofen (Advil or Motrin) or a prescribed muscle relaxant may be helpful at this point. Follow Up with your doctor if the headache is not better within the next 24 hours. If you have frequent headaches you should discuss a treatment plan with your primary care doctor. Ask if you can have medicine to take at home the next time you get a bad headache. This may avoid the need for a visit to the emergency department in the future. Poorly controlled chronic headaches may require a referral to a neurologist (headache specialist). Get Prompt Medical Attention if any of the following occur: Worsening of your head pain or no improvement within 24 hours Repeated vomiting (unable to keep liquids down) Fever of 100.4F (38C) or higher, or as directed by your healthcare provider Stiff neck Extreme drowsiness, confusion or fainting Dizziness, vertigo (dizziness with spinning sensation) Weakness of an arm or leg or one side of the face Difficulty with speech or vision You have been given the following additional information: Headache, Tension Rest. (Electronically signed by Winter Cantu A.R.N.P. 12/23/2016 21:10)
--- NOTE | 2016-12-24 11:00 | ED MED RECONCILIATION SUMMARY ---
Patient: RUSSELL SEGOVIA Medication Reconciliation Report [facility] VisitID: [id number] [address] [place] [address] 36y, F Registration Date/Time: 12/23/2016 Weight: 72.1 kg Height/Length: 63 in. BMI: 28.2 ALLERGIES: None The patient's Home Medications are listed below: NONE. The source(s) of the original Home Medication information: Not obtained. The following Medications were given to the patient in the Emergency Department: IV NS IV Fluids bolus 1000 mL over 1 hour(s), administered: 12/23/2016 5:49:00 PM Decadron [IVP] IVP 10 mg, administered: 12/23/2016 5:55:00 PM Diphenhydramine [IVP] IVP 12.5 mg, administered: 12/23/2016 5:57:00 PM Zofran [IVP] IVP 4 mg, administered: 12/23/2016 6:01:00 PM Ketorolac [IVP] IVP 30 mg, administered: 12/23/2016 6:50:00 PM PROMETHAZINE [IVP] IVP 12.5 mg, administered: 12/23/2016 6:52:00 PM Lorazepam [IVP] IVP 0.5 mg, administered: 12/23/2016 6:54:00 PM IV NS IV Fluids bolus 0, then 999 mL/hr, administered: 12/23/2016 6:48:00 PM Hydromorphone [IVP] IVP 0.5 mg, administered: 12/23/2016 7:46:00 PM Diphenhydramine [IVP] IVP 12.5 mg, administered: 12/23/2016 7:48:00 PM The following Medications were prescribed to the patient: Tizanidine 4 mg: take 1-2 tablets orally every 8 hours as needed. Dispense fifteen (15). No refills. -- Winter Cantu A.R.NMarthaPMartha Dexamethasone 4 mg:( taper) -- Winter Cantu A.R.NMarthaPMartha Promethazine 25 mg suppositories: insert 1 suppository into the rectum every 6 hours as needed for nausea. Dispense six (6). No refill. -- Winter Cantu A.R.N.P.
== END 2016-12-23 20:33 | disposition home or self-care (01) ==
LOC: ED SRH 16:39
DX: G44.209 Tension-type headache, unspecified, not intractable (principal)
CPT/HCPCS: 90100; 95059